=== PATIENT | male | born 1950 | race Caucasian/White ===

== ENCOUNTER 2017-05-18 07:55 | Inpatient (IN) | payer OTHER ==
[2017-05-18 08:42] LABS: Absolute Monocytes 0.8 K/uL (0.1-1.3); Absolute Neutrophil 11.8 K/uL (1.8-8.0); Basophils % 0.5 % (0-1.3); Eosinophils % 0.5 % (0-4.4); Hematocrit 42.3 % (39.6-49.0); Lymphocytes % 7.1 % (15.3-44.8); MCH 29.8 pg (27.0-35.0); MCV 89.4 fL (80-100); MPV 9.3 fL (7.6-11.3); Monocytes % 5.5 % (3.3-12.3); RBC Red Blood Cell Count 4.74 M/uL (4.33-5.43)
[2017-05-18] MEDS ORDERED: CEFEPIME/SWI 1gm 1 GM/10 ML SYR IV ONE (08:45)
[2017-05-18 08:47] LABS: Potassium 3.6 mEq/L (3.6-5.0)
[2017-05-18] MEDS ORDERED: VANCOMYCIN/NS 1 gm 1 GM/250 ML BAG ONE (08:48)
[2017-05-18] MEDS ORDERED: NA CHLORIDE 0.9% 2,000 ML ONE (08:48)
[2017-05-18 08:53] LABS: Albumin 3.6 g/dL (3.2-5.5); Bilirubin Direct 0.4 mg/dL (0-0.2); Bilirubin Total 1.6 mg/dL (0.3-1.2); Protein, Total 7.5 g/dL (6.0-8.3); Protime INR 1.98
[2017-05-18 09:08] LABS: Blood Morphology Comment NOT SEEN (NOT SEEN); Platelet Estimate DECR; Urine White Blood Cell Casts OK
[2017-05-18 09:43] LABS: Urine Bacteria <20 /HPF (NONE SEEN); Urine RBC <5 /HPF (NONE SEEN)
--- NOTE | 2017-05-18 09:43 | EDPHYS ---
Physician Documentation [facility] Name: Elijah Linares Age: 67 yrs Sex: Male : 1950 Arrival Date: 05/18/2017 Time: 07:57 Bed 5 Private MD: Isrrael Chun E ED Physician Noemi Felder HPI: 05/18 08:43 This 67 yrs old Male presents to ER via EMS with complaints of Leg Swelling - ma2 Redness. 08:43 The patient presents with pain, a rash, swelling. The complaints affect the medial ma2 aspect of left thigh, medial aspect of left knee, medial aspect of left calf, left medial ankle and medial aspect of left foot. Onset: The symptoms/episode began/occurred gradually, 2 day(s) ago. Associated signs and symptoms: Pertinent positives: fever, positional lightheadedness . Severity of symptoms: At their worst the symptoms were severe. The patient has experienced a previous episode. hx of DM has left lower extremity ulcers for 1 year, sent here by his home nurse for left LE swelling edema, fever and pain. Historical: - Allergies: 08:01 No Known Allergies; sv - PMHx: 08:01 Diabetes - NIDDM; Hypertension; diabetic ulcers; Cellulitis; sv - Immunization history:: Flu vaccine is up to date. - Social history:: Smoking status: Patient/guardian denies using tobacco, Patient uses alcohol, 2 x week. Patient/guardian denies using street drugs. ROS: 08:43 Eyes: Negative for injury, pain, redness, and discharge, ENT: Negative for injury, ma2 pain, and discharge, Neck: Negative for injury, pain, and swelling, Cardiovascular: Negative for chest pain, palpitations, and edema, Respiratory: Negative for shortness of breath, cough, wheezing, and pleuritic chest pain, Abdomen/GI: Negative for abdominal pain, nausea, diarrhea, and constipation, Back: Negative for injury and pain, : Negative for injury, bleeding, discharge, and swelling, Neuro: Negative for headache, weakness, numbness, tingling, and seizure, Psych: Negative for depression, anxiety, suicide ideation, homicidal ideation, and hallucinations, Allergy/Immunology: Negative for hives, rash, and allergies, Endocrine: Negative for neck swelling, polydipsia, polyuria, polyphagia, and marked weight changes. Exam: 08:43 Constitutional: This is a well developed, well nourished patient who is awake, alert, ma2 and in no acute distress. Head/Face: Normocephalic, atraumatic. Eyes: Pupils equal round and reactive to light, extra-ocular motions intact. Lids and lashes normal. Conjunctiva and sclera are non-icteric and not injected. Cornea within normal limits. Periorbital areas with no swelling, redness, or edema. Chest/axilla: Normal chest wall appearance and motion. Nontender with no deformity. No lesions are appreciated. Cardiovascular: Regular rate and rhythm with a normal S1 and S2. No gallops, murmurs, or rubs. Normal PMI, no JVD. No pulse deficits. Respiratory: Lungs have equal breath sounds bilaterally, clear to auscultation and percussion. No rales, rhonchi or wheezes noted. No increased work of breathing, no retractions or nasal flaring. 08:43 Skin: left leg mild edema erythema warmth over whole left foot leg knee and left thigh, tender to palpation, no crepitus, no fluctuance. has 2 partially healed ulcers on left foot medial aspect, dry . Vital Signs: 08:01 BP 118 / 58; Pulse 63; Resp 20; Temp 98.1(O); Pulse Ox 100% on R/A; Weight 124.74 kg sv (R); Height 5 ft. 11 in. (180.34 cm) (R); Pain 6/10; 09:04 BP 126 / 62; Pulse 67; Resp 18; Pulse Ox 99% on R/A; sv 10:00 BP 117 / 96; Pulse 70; Resp 17; Pulse Ox 100% ; sv 10:57 BP 116 / 54; Pulse 60; Resp 18; Pulse Ox 97% on R/A; sv 08:01 Body Mass Index 38.35 (124.74 kg, 180.34 cm) sv MDM: 07:57 Patient medically screened. ma2 08:43 Differential diagnosis: contusion, abrasion, left leg cellulitis. ma2 09:09 Data reviewed: vital signs, nurses notes, EMS record, old medical records, lab test ma2 result(s), EKG, started on vanc cefepime, 2L bolus, will admit for cellulitis of whole LLE, elevated WBC, DEMARCUS cr = 2.2 from 1.3, and as a result, I will. Sepsis 6 hour Focused Exam: Focused assessment performed: May 18, 2017 at 09:11 Heart: Regular rate/rhythm. Lungs: noted to be clear bilaterally. Capillary refill examination performed. Capillary refill noted to be < 2 seconds. Skin examination performed. Skin examination noted to be unremarkable. Passive leg raise examination performed. Other: skin cellulitis unchanged . Counseling: I had a detailed discussion with the patient and/or guardian regarding: the historical points, exam findings, and any diagnostic results supporting the discharge/admit diagnosis, the presence of at least one elevated blood pressure reading (>120/80) during this emergency department visit, the need for further work-up and treatment in the hospital. Physician consultation: Freedom Macias MD. Admission orders: after a detailed discussion of the patient's condition and case, the admit orders are written by ia. 09:19 Counseling: I had a detailed discussion with the patient and/or guardian regarding: the ia2 need for further work-up and treatment in the hospital. Physician consultation:. Admission orders: after a detailed discussion of the patient's condition and case, the admit orders are written by me. 05/18 08:09 Order name: Basic Metabolic Panel [facility] 05/18 08:09 Order name: Blood Culture Adult (2) [facility] 05/18 08:09 Order name: CBC with Diff [facility] 05/18 08:09 Order name: Lactate [facility] 05/18 08:09 Order name: Procalcitonin [facility] 05/18 08:09 Order name: Protime (+inr) [facility] 05/18 08:09 Order name: Ptt, Activated [facility] 05/18 08:09 Order name: Sed Rate [facility] 05/18 08:09 Order name: LFT's [facility] 05/18 08:47 Order name: Basic Metabolic Panel; Complete Time: 09:02 EDMS 05/18 09:26 Interpretation: Abnormal. [facility] 05/18 08:54 Order name: Liver (Hepatic) Function; Complete Time: 09:02 EDMS 05/18 08:57 Order name: Protime (+INR); Complete Time: 09:02 EDMS 05/18 08:58 Order name: PTT, Activated Partial Thromb; Complete Time: 09:02 EDMS 05/18 08:59 Order name: Lactate; Complete Time: 09:02 EDMS 05/18 08:09 Order name: Cardiac monitoring; Complete Time: 08:19 ma2 05/18 08:09 Order name: IV Saline Lock - Large Bore; Complete Time: 08:47 ma2 05/18 08:09 Order name: Labs collected and sent; Complete Time: 08:47 ma2 05/18 09:03 Order name: Urine Microscopic Only jb1 05/18 09:06 Order name: Urine Dipstick--Ancillary (enter results) bd 05/18 09:06 Order name: Sedimentation Rate, Westergren; Complete Time: 09:09 EDMS 05/18 09:08 Order name: Procalcitonin; Complete Time: 09:09 EDMS 05/18 09:09 Order name: CBC with Automated Diff; Complete Time: 09:09 EDMS 05/18 09:09 Order name: CBC Smear Scan; Complete Time: 09:09 EDMS 05/18 09:44 Order name: Urine Microscopic Only EDMS 05/18 10:57 Order name: Urine Dipstick-Ancillary EDMS 05/18 08:09 Order name: O2 Per Protocol; Complete Time: 08:19 ma2 05/18 08:09 Order name: O2 Sat Monitoring; Complete Time: 08:19 ma2 05/18 08:09 Order name: Urine Dipstick-Ancillary (obtain specimen); Complete Time: 09:03 ma2 Administered Medications: 08:46 CANCELLED (order changed): NS 0.9% (30 ml/kg) 30 ml/kg IV at bolus once; Sepsis Protocolsv 08:47 Drug: vancoMYCIN 1 grams Route: IVPB; Infused Over: 2 hrs; Site: right forearm; sv 10:14 Follow up: IV Status: Completed infusion ss 08:47 Drug: NS 0.9% 2000 ml Route: IV; Rate: 1000 ml; Site: right forearm; sv 11:25 Follow up: Response: No adverse reaction; IV Status: Completed infusion; IV Intake: sv 2000ml 09:12 Drug: Cefepime 1 grams {Note: vanc paused and line flushed prior to administratoin. ss Cefepime 1 G given SIVP over 4 minutes as instructed by pharmacy. .} Route: IVPB; Rate: 200 ml/hr; Infused Over: 30 mins; Site: right forearm; Disposition: 05/18/17 09:43 Hospitalization ordered by Ira Welch for Observation. Preliminary diagnosis are Cellulitis of left lower limb, Hypo-osmolality and hyponatremia, Acute kidney failure, unspecified. - Bed requested for Telemetry/MedSurg (observation). - Status is Observation. sv - Condition is Stable. - Problem is new. - Symptoms are unchanged. UTI on Admission? No Signatures: Dispatcher [employer] EDMS Ifrah Hicks Stephanie, RN RN Michelle Flanagan RN RN Noemi Felder MD MD [facility] Corrections: (The following items were deleted from the chart) 08:46 08:09 NS 0.9% (30 ml/kg) 30 ml/kg IV at bolus once; Sepsis Protocol ordered. [facility] 09:23 08:09 Accucheck ordered. ia2 09: 09:26 Abnormal. ia2 [facility] : 09:26 Within normal limits. ia2 [facility]
--- NOTE | 2017-05-18 09:43 | ER ---
Nurse's Notes [facility] Name: Elijah Linares Age: 67 yrs Sex: Male : 1950 Arrival Date: 05/18/2017 Time: 07:57 Bed 5 Private MD: Isrrael Chun E Diagnosis: Cellulitis of left lower limb;Hypo-osmolality and hyponatremia;Acute kidney failure, unspecified Presentation: 05/18 07:47 Presenting complaint: EMS states: seen yesterday by his HH nurse and noted redness to sv the left foot up to the left knee and pain. Pt stated yesterday he stood up and felt cold. BP 139/72 HR 54 RR 16 98% RA T-98.8. Transition of care: patient was not received from another setting of care. Onset of symptoms was May 17, 2017. Care prior to arrival: Glucose check: 115. 07:47 Method Of Arrival: EMS: [facility] sv 07:47 Acuity: NADIYA 3 sv Triage Assessment: 07:55 General: Appears in no apparent distress. uncomfortable, obese, well developed, sv Behavior is calm, cooperative, appropriate for age. Pain: Complains of pain in left leg Pain does not radiate. Pain currently is 6 out of 10 on a pain scale. Quality of pain is described as tender, Pain began 1 day ago. Is continuous, Aggravated by increased activity, weight bearing. EENT: No signs and/or symptoms were reported regarding the EENT system. Neuro: Level of Consciousness is awake, alert, obeys commands, Oriented to person, place, time, situation, Moves all extremities. Full function Speech is normal. Cardiovascular: Patient's skin is warm and dry. Respiratory: Airway is patent Respiratory effort is even, unlabored, Respiratory pattern is regular, symmetrical. Derm: Skin is normal, Wound noted lateral aspect of left calf, left lateral ankle, lateral aspect of left foot, left calf, left Achilles, left heel, medial aspect of left calf, left medial ankle, medial aspect of left foot, left mehta, anterior aspect of left ankle and dorsum of left foot Wound is Pt has scaly skin and discoloration noted. Pt has a diabetic ulcers that he has been dealing with for about 5 years and has a home health nurse that comes and dresses it. Pt has 2 separate ones noted on the proximal part of the left ankle. Historical: - Allergies: 08:01 No Known Allergies; sv - PMHx: 08:01 Diabetes - NIDDM; Hypertension; diabetic ulcers; Cellulitis; sv - Immunization history:: Flu vaccine is up to date. - Social history:: Smoking status: Patient/guardian denies using tobacco, Patient uses alcohol, 2 x week. Patient/guardian denies using street drugs. Screenin:24 Abuse screen: Denies threats or abuse. Denies injuries from another. Nutritional sv screening: No deficits noted. Tuberculosis screening: No symptoms or risk factors identified. Fall Risk No fall in past 12 months (0 pts). No secondary diagnosis (0 pts). IV access (20 points). Ambulatory Aid- None/Bed Rest/Nurse Assist (0 pts). Gait- Normal/Bed Rest/Wheelchair (0 pts) Mental Status- Oriented to own ability (0 pts). Total Penn Fall Scale indicates No Risk (0-24 pts). Assessment: 08:00 Reassessment: See triage assessment. sv 09:08 Reassessment: Patient appears in no apparent distress at this time. No changes from sv previously documented assessment. Patient and/or family updated on plan of care and expected duration. Pain level reassessed. Patient is alert, oriented x 3, equal unlabored respirations, skin warm/dry/pink. 10:14 Reassessment: Patient appears in no apparent distress at this time. No changes from sv previously documented assessment. Patient and/or family updated on plan of care and expected duration. Pain level reassessed. Patient is alert, oriented x 3, equal unlabored respirations, skin warm/dry/pink. 11:02 Reassessment: Nurse to call back for report. sv 11:26 Reassessment: Patient appears in no apparent distress at this time. No changes from sv previously documented assessment. Patient and/or family updated on plan of care and expected duration. Pain level reassessed. Patient is alert, oriented x 3, equal unlabored respirations, skin warm/dry/pink. Vital Signs: 08:01 BP 118 / 58; Pulse 63; Resp 20; Temp 98.1(O); Pulse Ox 100% on R/A; Weight 124.74 kg sv (R); Height 5 ft. 11 in. (180.34 cm) (R); Pain 6/10; 09:04 BP 126 / 62; Pulse 67; Resp 18; Pulse Ox 99% on R/A; sv 10:00 BP 117 / 96; Pulse 70; Resp 17; Pulse Ox 100% ; sv 10:57 BP 116 / 54; Pulse 60; Resp 18; Pulse Ox 97% on R/A; sv 08:01 Body Mass Index 38.35 (124.74 kg, 180.34 cm) sv ED Course: 07:57 Patient arrived in ED. sv 07:57 Noemi Felder MD is Attending Physician. ma2 07:58 Silvana Avila RN is Primary Nurse. sv 08:00 Triage completed. sv 08:02 Arm band placed on right wrist. sv 08:02 Patient has correct armband on for positive identification. Placed in gown. Bed in low sv position. Call light in reach. Side rails up X2. electronic device monitor on. Pulse ox on. NIBP on. Door closed. Head of bed elevated. 08:58 LFT's Sent. sv 08:58 Basic Metabolic Panel Sent. sv 08:58 Blood Culture Adult (2) Sent. sv 08:58 CBC with Diff Sent. sv 08:58 Lactate Sent. sv 08:58 Procalcitonin Sent. sv 08:58 Protime (+inr) Sent. sv 08:58 Ptt, Activated Sent. sv 08:58 Sed Rate Sent. sv 09:02 Urine collected: clean catch specimen, cloudy, garrison colored. jb1 09:23 Urine Dipstick--Ancillary (enter results) Sent. sv 09:23 Urine Microscopic Only Sent. sv 09:24 Awaiting disposition. sv 09:40 Ira Welch MD is Hospitalizing Provider. ma2 09:44 Awaiting bed assignment. sv 10:14 Isrrael Chun MD is Private Physician. sv 11:26 No provider procedures requiring assistance completed. Patient admitted, IV remains in sv place. intact. Administered Medications: 08:46 CANCELLED (order changed): NS 0.9% (30 ml/kg) 30 ml/kg IV at bolus once; Sepsis Protocolsv 08:47 Drug: vancoMYCIN 1 grams Route: IVPB; Infused Over: 2 hrs; Site: right forearm; sv 10:14 Follow up: IV Status: Completed infusion ss 08:47 Drug: NS 0.9% 2000 ml Route: IV; Rate: 1000 ml; Site: right forearm; sv 11:25 Follow up: Response: No adverse reaction; IV Status: Completed infusion; IV Intake: sv 2000ml 09:12 Drug: Cefepime 1 grams {Note: vanc paused and line flushed prior to administratoin. ss Cefepime 1 G given SIVP over 4 minutes as instructed by pharmacy. .} Route: IVPB; Rate: 200 ml/hr; Infused Over: 30 mins; Site: right forearm; Intake: 11:25 IV: 2000ml; Total: 2000ml. sv Outcome: 09:43 Decision to Hospitalize by Provider. sarath 11:26 Admitted to Med/surg accompanied by tech, via stretcher, room 212, with chart, Report sv called to Noah RICKETTS 11:26 Condition: stable 11:26 Instructed on the need for admit. 11:52 Patient left the ED. sv Signatures: Elijah Ferguson Stephanie, JAMARCUS RN Michelle Link RN RN Noemi Felder MD MD [facility]
[2017-05-18 09:44] LABS: Urine Culture Reflex Order NOT NEEDED
[2017-05-18 10:57] LABS: Urine Blood 2+ (NEG); Urine Glucose NEGATIVE (NEG); Urine Protein 1+ (NEG)
[2017-05-18] MEDS ORDERED: ACETAMINOPHEN 500 MG TAB PO PRN (11:29)
[2017-05-18] MEDS ORDERED: ONDANSETRON 4 MG (ODT) TAB PO PRN (11:29)
[2017-05-18] MEDS: NA CHLORIDE 0.9% 1,000 ML IV SCH (11:29)
[2017-05-18] MEDS ORDERED: VANCOMYCIN 1.25 GM in NA CHLORIDE 0.9% 250 ML IVPB SCH (13:00)
--- NOTE | 2017-05-18 15:09 | P.HP ---
Certification for Inpatient Patient admitted to: Inpatient With expected LOS: >2 Midnights Patient will require the following post-hospital care: None Practitioner: I am a practitioner with admitting privileges, knowledge of patient current condition, hospital course, and medical plan of care. Services: Services provided to patient in accordance with Admission requirements found in Title 42 Section 412.3 of the Code of Federal Regulations Patient History Date of Service: 05/18/17 Reason for admission: Cellulitis History of Present Illness: This is a 67-year-old male with significant past medical history of congestive heart failure, atrial fibrillation, chronic anti coagulation therapy, chronic PAD with ulceration who presented to the ED complaining of left leg cellulitis that has gotten worse. Patient has been admitted to the hospital frequently for the same problems and then discharged home on antibiotics along with wound care. Patient has home health nurses and visits wound healing Center for his left leg ulcerations from chronic PVD. Patient stated that for couple of days he has noticed that his leg has been getting worse with erythema and purulent discharge as he decided to come to the ER to get it checked out. Patient states that his home health nurse was also concerned regarding the collar of the leg and how it was extending to the thigh area. Allergies No Known Allergies Allergy (Verified 10/26/15 18:40) Home Medications: Carvedilol 3.125 mg PO BID #60 tablet 08/27/15 Furosemide [Lasix*] 40 mg PO BID #60 tab 08/27/15 Lisinopril [Prinivil*] 5 mg PO DAILY #30 tab 08/27/15 Rivaroxaban [Xarelto] 20 mg PO DAILY AT SUPPER #30 tablet 08/27/15 - Past Medical/Surgical History Has patient received pneumonia vaccine in the past: Yes Diabetic: Yes -: DM (diet controlled) -: HTN -: Blood clot superior vena cava -: chonic left lower ext. diabetic wounds - Family History Father -: Stroke Mother -: Other (see notes) Notes: blood clots - Social History Smoking Status: Never smoker Alcohol use: Yes CD- Drugs: No Caffeine use: Yes Place of Residence: Home Review of Systems General: As per HPI Physical Examination - Vital Signs Temperature: 97.0 F Blood Pressure: 133/90 Pulse: 62 Respirations: 20 Pulse Ox (%): 100 - Physical Exam General: Alert, In no apparent distress, Oriented x3 HEENT: Atraumatic Neck: Supple Respiratory: Clear to auscultation bilaterally, Normal air movement Cardiovascular: Regular rate/rhythm, Normal S1 S2 Gastrointestinal: Normal bowel sounds, Soft and benign, Non-distended, No tenderness Musculoskeletal: Other (BL LE with Bluish Hue, Left LE with Erythema and Tenderness and purulent Discharge. ) Integumentary: Rash(es), Skin lesion Neurological: Normal speech, Normal tone, Normal affect Lymphatics: No axilla or inguinal lymphadenopathy - Studies Laboratory Data (last 24 hrs) 05/18/17 08:10: PT 23.5 H, INR 1.98, APTT 36.9 05/18/17 08:10: WBC 13.7 H, Hgb 14.1, Hct 42.3, Plt Count 145 L 05/18/17 08:10: Sodium 127 L, Potassium 3.6, BUN 41 H, Creatinine 2.22 H, Glucose 120, Total Bilirubin 1.6 H, AST 29, ALT 17, Alkaline Phosphatase 57 Assessment and Plan - Problems (Diagnosis) (1) Cellulitis of leg, left Onset Date: 10/27/15 Current Visit: No Status: Acute Plan: Acute Left Sided Cellulitis -IV vanc and zosyn -Wound care consult -Wound culture -MRI to r/o Osteomylitis (2) Chronic venous hypertension w ulceration Current Visit: No Status: Chronic Qualifiers: Laterality: bilateral Qualified Code(s): I87.313 - Chronic venous hypertension (idiopathic) with ulcer of bilateral lower extremity (3) CHF (congestive heart failure) Onset Date: 08/25/15 Current Visit: No Status: Chronic Qualifiers: Heart failure type: systolic Heart failure chronicity: chronic Qualified Code(s): I50.22 - Chronic systolic (congestive) heart failure (4) Hyperlipidemia Onset Date: 10/27/15 Current Visit: No Status: Chronic Qualifiers: Hyperlipidemia type: mixed hyperlipidemia Qualified Code(s): E78.2 - Mixed hyperlipidemia (5) Hypertension Onset Date: 10/27/15 Current Visit: No Status: Chronic Qualifiers: Hypertension type: essential hypertension Qualified Code(s): I10 - Essential (primary) hypertension (6) Diabetes mellitus Onset Date: 08/25/15 Current Visit: No Status: Chronic (7) Obesity Current Visit: No Status: Chronic (8) Chronic anticoagulation Onset Date: 10/27/15 Current Visit: No Status: Chronic Plan: Chronic Anticoagulation due to blood Clot in SVC Discharge Plan: LTAC Plan to discharge in: 72 Hours - Advance Directives Does patient have a Living Will: No Does patient have a Durable POA for Healthcare: No
[2017-05-18] MEDS: VANCOMYCIN 2 GM in NA CHLORIDE 0.9% 500 ML IVPB SCH (15:21)
[2017-05-18] MEDS: PIPER/TAZO/NS 3.375gm 3.375 GM/100 ML BAG IVPB SCH (17:00)
[2017-05-18] MEDS: RIVAROXABAN 20 MG TABLET PO SCH (17:06)
--- NOTE | 2017-05-18 17:23 | RAD REPORT ---
EXAM DESCRIPTION: MRI - Tib Fib Left Wo Cont - 05/18/2017 5:06 pm CLINICAL HISTORY: Left lower leg pain, swelling and open wound COMPARISON: None. TECHNIQUE: Axial, sagittal coronal magnetic resonance imaging of the distal aspect of the left lowe r extremity was performed. FINDINGS: A soft tissue ulceration involves the medial aspect of the ankle. Diffuse edema is present within the subcutaneous tissues. The tibia, talus and calcaneus demonstrates normal. A soft tissue abscess is not seen. Small ankle joint effusion is present. A moderate talocalcaneal joint effusion is seen. IMPRESSION: Soft tissue ulceration involving the medial aspect of the ankle. No evidence of osteomyelitis.
[2017-05-18] MEDS: FUROSEMIDE 40 MG TABLET PO SCH (21:17)
[2017-05-18] MEDS: CARVEDILOL 3.125 MG TAB PO SCH (21:18)
[2017-05-19] MEDS: PIPER/TAZO/NS 3.375gm 3.375 GM/100 ML BAG IVPB SCH ×3 (01:54→17:16)
[2017-05-19] MEDS: NA CHLORIDE 0.9% 1,000 ML IV SCH ×3 (01:55→17:16)
[2017-05-19 05:48] LABS: Absolute Lymphocytes (CBC) 1.1 K/uL (0.7-4.9); Absolute Monocytes 0.7 K/uL (0.1-1.3); Absolute Neutrophil 7.9 K/uL (1.8-8.0); Basophils % 0.4 % (0-1.3); Eosinophils % 2.2 % (0-4.4); Hematocrit 38.6 % (39.6-49.0); Lymphocytes % 10.8 % (15.3-44.8); MCH 29.9 pg (27.0-35.0); MCV 90.2 fL (80-100); MPV 9.6 fL (7.6-11.3); Monocytes % 6.7 % (3.3-12.3); RBC Red Blood Cell Count 4.28 M/uL (4.33-5.43)
[2017-05-19 06:00] LABS: Albumin 2.9 g/dL (3.2-5.5); Potassium 3.8 mEq/L (3.6-5.0); Protein, Total 6.4 g/dL (6.0-8.3)
[2017-05-19 06:01] LABS: Phosphorus 2.8 mg/dL (2.5-4.3)
[2017-05-19] MEDS: LISINOPRIL 5 MG TAB PO SCH ×2 (09:00→12:03)
[2017-05-19] MEDS: CARVEDILOL 3.125 MG TAB PO SCH ×3 (09:00→21:24)
[2017-05-19] MEDS: FUROSEMIDE 40 MG TABLET PO SCH ×2 (10:09→21:23)
[2017-05-19] MEDS ORDERED: MAGNESIUM HYDROXIDE 8% 30 ML PO ONE (10:30)
[2017-05-19] MEDS: DOCUSATE NA 100 MG CAP PO SCH ×2 (11:02→21:00)
--- NOTE | 2017-05-19 14:26 | P.PN ---
Subjective Date of Service: 05/19/17 Chief Complaint: Cellulitis Mitchell seen and examined at bedside with RN. Case chart reviewed. Patient currently doing better than before she. States that his swelling has gone down markedly and history Ra has decreased markedly as well. Review of Systems General: As per HPI Physical Examination - Vital Signs Temperature: 98.0 F Blood Pressure: 143/72 Pulse: 71 Respirations: 18 Pulse Ox (%): 99 - Physical Exam General: Alert, In no apparent distress HEENT: Atraumatic, PERRLA, EOMI Neck: Supple, JVD not distended Respiratory: Clear to auscultation bilaterally, Normal air movement Cardiovascular: Regular rate/rhythm, Normal S1 S2 Gastrointestinal: Normal bowel sounds, No tenderness Musculoskeletal: Other (Left Lower leg with swelling and erythema. Decreased swelling and redness than yesterday. ) Neurological: Normal speech, Normal tone, Normal affect Lymphatics: No axilla or inguinal lymphadenopathy - Studies Microbiology Data (last 24 hrs): 05/18/17 08:10 Blood - Other Anaerobic Blood Culture - Final Medications List Reviewed: Yes Assessment & Plan - Problems (Diagnosis) (1) Cellulitis of leg, left Onset Date: 10/27/15 Current Visit: No Status: Acute Plan: Acute Left Sided Cellulitis -IV vanc and zosyn -Wound care consult -Wound culture -MRI Negative for osteomylitis . (2) Chronic venous hypertension w ulceration Current Visit: No Status: Chronic Qualifiers: Laterality: bilateral Qualified Code(s): I87.313 - Chronic venous hypertension (idiopathic) with ulcer of bilateral lower extremity (3) CHF (congestive heart failure) Onset Date: 08/25/15 Current Visit: No Status: Chronic Qualifiers: Heart failure type: systolic Heart failure chronicity: chronic Qualified Code(s): I50.22 - Chronic systolic (congestive) heart failure (4) Hyperlipidemia Onset Date: 10/27/15 Current Visit: No Status: Chronic Qualifiers: Hyperlipidemia type: mixed hyperlipidemia Qualified Code(s): E78.2 - Mixed hyperlipidemia (5) Hypertension Onset Date: 10/27/15 Current Visit: No Status: Chronic Qualifiers: Hypertension type: essential hypertension Qualified Code(s): I10 - Essential (primary) hypertension (6) Diabetes mellitus Onset Date: 08/25/15 Current Visit: No Status: Chronic (7) Obesity Current Visit: No Status: Chronic (8) Chronic anticoagulation Onset Date: 10/27/15 Current Visit: No Status: Chronic Plan: Chronic Anticoagulation due to blood Clot in SVC Discharge Plan: Home Plan to discharge in: 24 Hours - Code Status/Comfort Care Code Status Assessed: Yes Critical Care: No
[2017-05-19] MEDS: RIVAROXABAN 20 MG TABLET PO SCH (17:16)
[2017-05-20] MEDS: PIPER/TAZO/NS 3.375gm 3.375 GM/100 ML BAG IVPB SCH ×3 (01:50→18:27)
[2017-05-20] MEDS: NA CHLORIDE 0.9% 1,000 ML IV SCH ×3 (01:51→20:48)
[2017-05-20] MEDS: VANCOMYCIN 2 GM in NA CHLORIDE 0.9% 500 ML IVPB SCH (04:21)
[2017-05-20 05:02] LABS: Absolute Monocytes 0.9 K/uL (0.1-1.3); Absolute Neutrophil 7.4 K/uL (1.8-8.0); Basophils % 0.9 % (0-1.3); Eosinophils % 2.1 % (0-4.4); Hematocrit 37.4 % (39.6-49.0); MCV 89.1 fL (80-100); MPV 9.6 fL (7.6-11.3); Monocytes % 9.8 % (3.3-12.3)
[2017-05-20 05:15] LABS: Albumin 2.7 g/dL (3.2-5.5); Potassium 3.9 mEq/L (3.6-5.0)
[2017-05-20 05:24] LABS: Bilirubin Total 1.8 mg/dL (0.3-1.2); Magnesium 1.9 mg/dL (1.8-2.5); Phosphorus 2.3 mg/dL (2.5-4.3)
[2017-05-20] MEDS: DOCUSATE NA 100 MG CAP PO SCH ×2 (10:37→20:49)
[2017-05-20] MEDS: LISINOPRIL 5 MG TAB PO SCH (10:37)
[2017-05-20] MEDS: CARVEDILOL 3.125 MG TAB PO SCH ×2 (10:37→20:49)
[2017-05-20] MEDS: FUROSEMIDE 40 MG TABLET PO SCH ×2 (10:38→20:49)
--- NOTE | 2017-05-20 13:13 | P.PN ---
Subjective Date of Service: 05/20/17 Chief Complaint: Cellulitis Mitchell seen and examined at bedside with RN. Case chart reviewed. Patient currently doing better than before she. States that his redness has improved, however today swelling is worse. Review of Systems 10-point ROS is otherwise unremarkable Physical Examination - Vital Signs Temperature: 99.3 F Blood Pressure: 124/60 Pulse: 59 Respirations: 16 Pulse Ox (%): 95 - Physical Exam General: Alert, In no apparent distress HEENT: Atraumatic, PERRLA, EOMI Neck: Supple, JVD not distended Respiratory: Clear to auscultation bilaterally, Normal air movement Cardiovascular: Regular rate/rhythm, Normal S1 S2 Gastrointestinal: Normal bowel sounds, No tenderness Musculoskeletal: Erythema, Tenderness, Warmth Integumentary: No rashes Neurological: Normal speech, Normal tone, Normal affect Lymphatics: No axilla or inguinal lymphadenopathy - Studies Microbiology Data (last 24 hrs): 05/18/17 08:10 Blood - Other Anaerobic Blood Culture - Final Medications List Reviewed: Yes Assessment & Plan - Problems (Diagnosis) (1) Cellulitis of leg, left Onset Date: 10/27/15 Current Visit: No Status: Acute Plan: Acute Left Sided Cellulitis. Improved but with Swelling -IV vanc and zosyn -Wound care consult -Wound culture pending -MRI Negative for osteomylitis. -Elevate and wrap the legs. (2) Chronic venous hypertension w ulceration Current Visit: No Status: Chronic Qualifiers: Laterality: bilateral Qualified Code(s): I87.313 - Chronic venous hypertension (idiopathic) with ulcer of bilateral lower extremity (3) CHF (congestive heart failure) Onset Date: 08/25/15 Current Visit: No Status: Chronic Qualifiers: Heart failure type: systolic Heart failure chronicity: chronic Qualified Code(s): I50.22 - Chronic systolic (congestive) heart failure (4) Hyperlipidemia Onset Date: 10/27/15 Current Visit: No Status: Chronic Qualifiers: Hyperlipidemia type: mixed hyperlipidemia Qualified Code(s): E78.2 - Mixed hyperlipidemia (5) Hypertension Onset Date: 10/27/15 Current Visit: No Status: Chronic Qualifiers: Hypertension type: essential hypertension Qualified Code(s): I10 - Essential (primary) hypertension (6) Diabetes mellitus Onset Date: 08/25/15 Current Visit: No Status: Chronic (7) Obesity Current Visit: No Status: Chronic (8) Chronic anticoagulation Onset Date: 10/27/15 Current Visit: No Status: Chronic Plan: Chronic Anticoagulation due to blood Clot in SVC Discharge Plan: Home Plan to discharge in: 24 Hours - Code Status/Comfort Care Code Status Assessed: Yes Critical Care: No
[2017-05-20] MEDS: RIVAROXABAN 20 MG TABLET PO SCH (18:27)
[2017-05-21] MEDS: PIPER/TAZO/NS 3.375gm 3.375 GM/100 ML BAG IVPB SCH ×2 (00:45→09:46)
[2017-05-21 05:08] LABS: Absolute Lymphocytes (CBC) 1.4 K/uL (0.7-4.9); Absolute Monocytes 1.5 K/uL (0.1-1.3); Basophils % 0.5 % (0-1.3); Eosinophils % 2.3 % (0-4.4); Hematocrit 35.5 % (39.6-49.0); Lymphocytes % 12.5 % (15.3-44.8); MCH 29.9 pg (27.0-35.0); MCV 89.3 fL (80-100); MPV 9.4 fL (7.6-11.3); Monocytes % 13.4 % (3.3-12.3); RBC Red Blood Cell Count 3.98 M/uL (4.33-5.43)
[2017-05-21] MEDS: VANCOMYCIN 2 GM in NA CHLORIDE 0.9% 500 ML IVPB SCH (05:34)
[2017-05-21 06:06] LABS: Albumin 2.6 g/dL (3.2-5.5); Bilirubin Total 1.7 mg/dL (0.3-1.2); Magnesium 1.9 mg/dL (1.8-2.5); Phosphorus 2.2 mg/dL (2.5-4.3); Potassium 4.1 mEq/L (3.6-5.0); Protein, Total 6.2 g/dL (6.0-8.3)
[2017-05-21] MEDS: DOCUSATE NA 100 MG CAP PO SCH ×2 (09:36→20:14)
[2017-05-21] MEDS: CARVEDILOL 3.125 MG TAB PO SCH ×2 (09:36→20:15)
[2017-05-21] MEDS: NA CHLORIDE 0.9% 1,000 ML IV SCH ×2 (09:37→19:29)
[2017-05-21] MEDS: FUROSEMIDE 40 MG TABLET PO SCH ×2 (09:37→20:16)
[2017-05-21] MEDS: LISINOPRIL 5 MG TAB PO SCH (09:37)
[2017-05-21] MEDS ORDERED: CHLORHEXIDINE GLUCO 4% 120 ML TOP SCH (12:00)
--- NOTE | 2017-05-21 13:29 | CON ---
Date of Consultation: 05/21/2017 Reason: Cellulitis and wound, left leg. History Of Present Illness: The patient is a 67-year-old gentleman, well known to me from wound care . He has venous stasis ulcer on the left leg, which we have been managing as an outpatient in the [facility] and he noticed that he got redness all the way up to his thighs last week, which o ccurred over 2 days. He was admitted on Sunday and then I was asked to evaluate him today. He does have MRSA growing from the wound. He had a MRI of the tib-fib area, which did not show any drainable fluid or abscess. He does not have any fever or chills currently, but he did when he became ill lat e last week. No sore throat, runny nose, cough, headaches, or dizziness. No chest pain. Review of Systems: Otherwise unremarkable. 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 He has collaterals through the epigastric vessels and lumbar vessels. Allergies: NONE. Social History: He does not smoke. Drinks occasionally. Family History: Noncontributory. Physical Examination: Vital Signs: Stable. He is afebrile, awake, alert, orient x3. Head and Neck: Cranial nerves 2 through 12 grossly within limits. No neck masses. No JVD. Throat clear. Neck supple. Chest: Clear. Heart: S1, S2. Abdomen: Soft. Extremities: There are 2 ulcerations on the left medial leg above the ankle. They are approximately 4 x 2 cm and 3 x 1 cm. There have moderate amount of fibrin in them. The erythema, warmth, and elzbieta ma where the line was drawn in the mid thigh is markedly improved. There is still some redness in th e left lower leg. There is some tenseness to it, but it is nothing new for him. There is no purulen t discharge at this time. Laboratory Data: White count today is 11.2 with a neutrophil percentage of 71.3. Sedimentation rate is 55. INR is 1.98. Chemistry reviewed, his BUN and creatinine are 25 and 1.71 and the intensive M RI and does not show any drainable abscess. Assessment: Left leg cellulitis with wound. Recommendation: Continue vancomycin and wound care will be consisting of collagenase as well as Lide x p.r.n. I can follow the patient either at the [facility] or at the [facility] should he decide to go there. No need for any acute surgical intervention at this time. JEYSON/LISA Voice ID: [id number] Report ID: [id number]
[2017-05-21] MEDS: CEFEPIME/SWI 2gm 2 GM/20 ML SYR IV SCH (13:47)
--- NOTE | 2017-05-21 16:56 | P.DS ---
Admission Date: 05/18/17 Discharge Date: 05/21/17 Disposition: ROUTINE DISCHARGE Discharge Condition: GOOD Reason for Admission: Cellulitis Consultations: Gen Surgery - Problems (1) Cellulitis of leg, left Onset Date: 10/27/15 Current Visit: No Status: Acute (2) Chronic venous hypertension w ulceration Onset Date: 05/21/17 Current Visit: Yes Status: Chronic Qualifiers: Laterality: bilateral Qualified Code(s): I87.313 - Chronic venous hypertension (idiopathic) with ulcer of bilateral lower extremity (3) CHF (congestive heart failure) Onset Date: 08/25/15 Current Visit: No Status: Chronic Qualifiers: Heart failure type: systolic Heart failure chronicity: chronic Qualified Code(s): I50.22 - Chronic systolic (congestive) heart failure (4) Hyperlipidemia Onset Date: 10/27/15 Current Visit: No Status: Chronic Qualifiers: Hyperlipidemia type: mixed hyperlipidemia Qualified Code(s): E78.2 - Mixed hyperlipidemia (5) Hypertension Onset Date: 10/27/15 Current Visit: No Status: Chronic Qualifiers: Hypertension type: essential hypertension Qualified Code(s): I10 - Essential (primary) hypertension (6) Diabetes mellitus Onset Date: 08/25/15 Current Visit: No Status: Chronic (7) Obesity Onset Date: 05/21/17 Current Visit: Yes Status: Chronic (8) Chronic anticoagulation Onset Date: 10/27/15 Current Visit: No Status: Chronic Brief History of Present Illness: This is a 67-year-old male with significant past medical history of congestive heart failure, atrial fibrillation, chronic anti coagulation therapy, chronic PAD with ulceration who presented to the ED complaining of left leg cellulitis that has gotten worse. Patient has been admitted to the hospital frequently for the same problems and then discharged home on antibiotics along with wound care. Patient has home health nurses and visits wound healing Center for his left leg ulcerations from chronic PVD. Patient stated that for couple of days he has noticed that his leg has been getting worse with erythema and purulent discharge as he decided to come to the ER to get it checked out. Patient states that his home health nurse was also concerned regarding the collar of the leg and how it was extending to the thigh area. Hospital Course: A 67-year-old male patient, who was admitted to the hospital after he presented to the emergency room with chronic left leg wound, but now new area of cellulitis of the left leg. The patient [facility] to [facility] on a regular basis and sees Dr. Mojica and he was asked to come in to the emergency room with complaints of redness of the left leg. After patient was evaluated in the ER, he was admitted to the hospital. He has chronic left leg wound which he said was worsening and was rather a large area of wound now. There was purulent discharge from this wound. The patient had redness and warmness of the left leg between knee and ankle. He was started on empiric IV antibiotics. There was improvement in the Cellulitis but the swelling was still there. Wound culture were positive for MRSA. I did talk to Dr. Mojica, he suggested to continue wound care dressing changes as per instructions from [facility] and for the patient to be moved to LTAC at [place] for 2 weeks of IV vanc for his infection. Pt was thus discharged to [facility] after PICC line insertion and had a f/u appt with dr mojica there. Vital Signs/Physical Exam: Temp Pulse Resp BP Pulse Ox 98.2 F 59 16 108/57 L 99 05/21/17 12:00 05/21/17 12:00 05/21/17 12:00 05/21/17 12:00 05/21/17 12:00 General: Alert, In no apparent distress, Oriented x3 HEENT: Atraumatic, PERRLA, EOMI Neck: Supple, JVD not distended Respiratory: Clear to auscultation bilaterally, Normal air movement Cardiovascular: Regular rate/rhythm, Normal S1 S2 Gastrointestinal: Normal bowel sounds, No tenderness Musculoskeletal: Erythema, Tenderness, Warmth Integumentary: No rashes Neurological: Normal speech, Normal tone, Normal affect Lymphatics: No axilla or inguinal lymphadenopathy Laboratory Data at Discharge: WBC 11.2 K/uL (4.3-10.9) H D 05/21/17 04:48 Hgb 11.9 g/dL (13.6-17.9) L 05/21/17 04:48 Hct 35.5 % (39.6-49.0) L 05/21/17 04:48 Plt Count 136 K/uL (152-406) L 05/21/17 04:48 PT 23.5 SECONDS (9.5-12.5) H 05/18/17 08:10 INR 1.98 05/18/17 08:10 APTT 36.9 SECONDS (24.3-36.9) 05/18/17 08:10 Sodium 133 mEq/L (135-145) L 05/21/17 04:48 Potassium 4.1 mEq/L (3.6-5.0) 05/21/17 04:48 BUN 25 mg/dL (6-20) H 05/21/17 04:48 Creatinine 1.71 mg/dL (0.61-1.24) H 05/21/17 04:48 Glucose 142 mg/dL (65-120) H 05/21/17 04:48 Phosphorus 2.2 mg/dL (2.5-4.3) L 05/21/17 04:48 Magnesium 1.9 mg/dL (1.8-2.5) 05/21/17 04:48 Total Bilirubin 1.7 mg/dL (0.3-1.2) H 05/21/17 04:48 AST 33 IU/L (10-42) 05/21/17 04:48 ALT 26 IU/L (10-60) 05/21/17 04:48 Alkaline Phosphatase 96 IU/L (42-121) 05/21/17 04:48 Home Medications: Carvedilol 3.125 mg PO BID #60 tablet 08/27/15 Furosemide [Lasix*] 40 mg PO BID #60 tab 08/27/15 Lisinopril [Prinivil*] 5 mg PO DAILY #30 tab 08/27/15 Rivaroxaban [Xarelto] 20 mg PO DAILY AT SUPPER #30 tablet 08/27/15 Vancomycin/0.9 % Sod Chloride [Vanco 2 Gram/250 ml-0.9% NaCl] 2 gm IV Q24H #14 plast..bag 05/21/17 New Medications: Vancomycin/0.9 % Sod Chloride [Vanco 2 Gram/250 ml-0.9% NaCl] 2 gm IV Q24H #14 plast..bag Diet: Regular Activity: Ad zeb Followup: Kvng Mojica MD [ACTIVE - CAN ADMIT] - 1-2 Days
[2017-05-21] MEDS: RIVAROXABAN 20 MG TABLET PO SCH (17:32)
[2017-05-21] MEDS: MUPIROCIN 2% OINT 22GM TUBE TOP SCH (20:14)
[2017-05-22] MEDS: NA CHLORIDE 0.9% 1,000 ML IV SCH (05:29)
[2017-05-22] MEDS: VANCOMYCIN 2 GM in NA CHLORIDE 0.9% 500 ML IVPB SCH (05:37)
--- NOTE | 2017-05-22 06:40 | RAD REPORT ---
EXAM DESCRIPTION: RAD - Chest Single View - 05/22/2017 5:59 am CLINICAL HISTORY: PICC line placement A preliminary report was provided at the time of the study. COMPARISON: October 2016 FINDINGS: Portable chest was obtained following placement of a right upper extremity PICC line. The catheter tip is in the mid SVC.
[2017-05-22] MEDS ORDERED: COLLAGENASE 30 GM OINTMENT TOP SCH (09:00)
[2017-05-22] MEDS: MUPIROCIN 2% OINT 22GM TUBE TOP SCH (09:00)
[2017-05-22] MEDS: DOCUSATE NA 100 MG CAP PO SCH (09:00)
[2017-05-22] MEDS: CARVEDILOL 3.125 MG TAB PO SCH (09:21)
[2017-05-22] MEDS: FUROSEMIDE 40 MG TABLET PO SCH (09:21)
[2017-05-22] MEDS: CEFEPIME/SWI 2gm 2 GM/20 ML SYR IV SCH (09:22)
[2017-05-22] MEDS: LISINOPRIL 5 MG TAB PO SCH (09:22)
== END 2017-05-22 13:19 | DRG 603 ==
LOC: ER 07:55 → OBSVTOIN 09:51 → ERHOLD 09:51 → 2ND 11:27
PROVIDERS: ADMIT Family Medicine; ATTEND Family Medicine
PROC: 02HV33Z Insertion of Infusion Device into Superior Vena Cava, Percutaneous Approach (ICD-10-PCS; principal; 2017-05-22)
DX: L03.116 Cellulitis of left lower limb (principal); I50.22 Chronic systolic (congestive) heart failure; I87.313 Chronic venous hypertension (idiopathic) with ulcer of bilateral lower extremity; I11.0 Hypertensive heart disease with heart failure; E78.2 Mixed hyperlipidemia; E11.9 Type 2 diabetes mellitus without complications; E66.9 Obesity, unspecified; Z68.38 Body mass index [BMI] 38.0-38.9, adult; B95.62 Methicillin resistant Staphylococcus aureus infection as the cause of diseases classified elsewhere; Z79.01 Long term (current) use of anticoagulants
CPT/HCPCS: 36415; 71045; 80048; 80053; 80076; 80202; 81003; 81015; 82962; 83605; 83735; 84100; 84145; 85025; 85610; 85652; 85730; 87040; 87070; 87077; 87186; 87205; 96361; 96365; 96375; 99285; J0692; J2543; J3370; J3590; J7030

== ENCOUNTER 2020-05-15 13:27 | Inpatient (IN) | payer OTHER ==
[2020-05-15 14:00] LABS: Absolute Lymphocytes (CBC) 1.6 K/uL (0.7-4.9); Hematocrit 32.6 % (39.6-49.0); Lymphocytes % 21.8 % (15.3-44.8); MPV 8.6 fL (7.6-11.3); RBC Red Blood Cell Count 3.89 M/uL (4.33-5.43)
[2020-05-15 14:05] LABS: Protime INR 2.45
--- NOTE | 2020-05-15 14:08 | RAD REPORT ---
EXAM DESCRIPTION: RAD - Chest Single View - 05/15/2020 2:02 pm CLINICAL HISTORY: left side chest swelling;Chest pain Chest pain. COMPARISON: Chest Single View dated 05/22/2017; Chest Pa And Lat (2 Views) dated 10/03/2016; Chest Sing le View dated 08/23/2015; CHEST PA AND LAT 2 VIEW dated 11/27/2008 FINDINGS: Portable technique limits examination quality. Mild interstitial pulmonary edema. The heart is moderately enlarged in size. No displaced fractures.
[2020-05-15 14:13] LABS: ALT/SGPT 22 U/L (12-78); AST/SGOT 26 U/L (15-37); Albumin 3.2 g/dL (3.4-5.0); Alkaline Phosphatase 122 U/L (45-117); BUN Blood Urea Nitrogen 29 mg/dL (7-18); Bicarbonate 23 mmol/L (21-32); Bilirubin Direct 0.4 mg/dL (0-0.2); Bilirubin Total 0.9 mg/dL (0.2-1.0); Glucose Level 124 mg/dL (74-106); NT PRO-BNP 3231 pg/mL (<125); Potassium 4.1 mmol/L (3.5-5.1); Protein, Total 8.3 g/dL (6.4-8.2); Sodium Level 137 mmol/L (136-145); Troponin (Emerg Dept Use Only) < 0.02 ng/mL (0.0-0.045)
[2020-05-15] MEDS ORDERED: FENTANYL CITR 100 MCG/2 ML ONE ×2 (14:19→16:29)
--- NOTE | 2020-05-15 15:08 | RAD REPORT ---
EXAM DESCRIPTION: CT - Thorax Wo Con CLINICAL HISTORY: Chest pain left side chest swelling COMPARISON: No comparisons FINDINGS: A 10 x 6 cm hematoma is present along the left upper chest soft tissues. There is surround ing skin thickening and mild inflammation along the left chest wall extending along the left lateral thoracic cage. Fibroemphysematous changes are present throughout the lungs. No pneumothorax is present. Trace pleural fluid. The heart size is prominent. No displaced rib fracture. 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 All CT scans are performed using dose optimization technique as appropriate and may include automated exposure control or mA/KV adjustment according to patient size. IMPRESSION: 10 cm soft tissue hematoma with surrounding soft tissue inflammation left upper chest.No fracture is seen.
--- NOTE | 2020-05-15 15:47 | ER ---
Nurse's Notes [facility] Name: Elijah Linares Age: 70 yrs Sex: Male : 1950 Arrival Date: 05/15/2020 Time: 13:31 Bed 24 Private MD: Diagnosis: Left Chest Wall Hematoma Presentation: 05/15 13:32 Chief complaint: Patient states: Bruising and swelling to L sided chest wall that ss patient noticed today. Pt reports he fell on Sunday, but caught himself and pulled something with his L arm. Coronavirus screen: Client denies travel out of the [place] in the last 14 days. Ebola Screen: Patient denies exposure to infectious person. Patient denies travel to an Ebola-affected area in the 21 days before illness onset. Initial Sepsis Screen: Does the patient meet any 2 criteria? No. Patient's initial sepsis screen is negative. Does the patient have a suspected source of infection? No. Patient's initial sepsis screen is negative. Risk Assessment: Do you want to hurt yourself or someone else? Patient reports no desire to harm self or others. Onset of symptoms was May 15, 2020. 13:32 Method Of Arrival: EMS: [facility] 13:32 Acuity: NADIYA 3 ss Historical: - Allergies: 13:36 No Known Allergies; ss - PMHx: 13:36 Cellulitis; Diabetes - NIDDM; Diabetic ulcers; Hypertension; ss - Immunization history:: Adult Immunizations up to date. - Social history:: Smoking status: Patient denies any tobacco usage or history of. Screenin:16 Abuse screen: Denies threats or abuse. Nutritional screening: No deficits noted. vg1 Tuberculosis screening: No symptoms or risk factors identified. Fall Risk No fall in past 12 months (0 pts). No secondary diagnosis (0 pts). IV access (20 points). Ambulatory Aid- None/Bed Rest/Nurse Assist (0 pts). Gait- Normal/Bed Rest/Wheelchair (0 pts) Mental Status- Oriented to own ability (0 pts). Total Penn Fall Scale indicates No Risk (0-24 pts). Assessment: 14:13 General: Appears in no apparent distress. uncomfortable, Behavior is calm, cooperative. vg1 Pain: Complains of pain in Left anterior chest wall Pain currently is 10 out of 10 on a pain scale. Pain began 2-3 days ago. Neuro: Level of Consciousness is awake, alert, obeys commands, Oriented to person, place, time, situation. Cardiovascular: Patient's skin is warm and dry. Respiratory: Airway is patent Respiratory effort is even, unlabored. GI: No signs and/or symptoms were reported involving the gastrointestinal system. : No signs and/or symptoms were reported regarding the genitourinary system. EENT: No signs and/or symptoms were reported regarding the EENT system. Derm: Bruising that is dark purple, on anterior aspect of left upper chest and left lateral anterior chest. Derm: Wound noted left lower leg; patient reports this is prexisting that is being taken care of at home by a homehealth nurse. Musculoskeletal: Circulation, motion, and sensation intact. 15:14 Reassessment: Patient appears in no apparent distress at this time. No changes from vg1 previously documented assessment. Patient and/or family updated on plan of care and expected duration. Pain level reassessed. Patient is alert, oriented x 3, equal unlabored respirations, skin warm/dry/pink. 16:30 Reassessment: Patient appears in no apparent distress at this time. No changes from vg1 previously documented assessment. Patient and/or family updated on plan of care and expected duration. Pain level reassessed. Patient is alert, oriented x 3, equal unlabored respirations, skin warm/dry/pink. 17:30 Reassessment: Patient appears in no apparent distress at this time. Patient and/or vg1 family updated on plan of care and expected duration. Pain level reassessed. Patient is alert, oriented x 3, equal unlabored respirations, skin warm/dry/pink. 18:42 Reassessment: Patient appears in no apparent distress at this time. Patient and/or vg1 family updated on plan of care and expected duration. Pain level reassessed. Patient is alert, oriented x 3, equal unlabored respirations, skin warm/dry/pink. 20:04 Reassessment: Attempted to call report. vg1 20:24 Reassessment: Attempted to call report. vg1 Vital Signs: 13:32 BP 143 / 63; Pulse 63; Resp 18; Temp 97.9(TE); Pulse Ox 100% on R/A; Weight 126.1 kg; ss Height 5 ft. 11 in. (180.34 cm); Pain 8/10; 13:45 BP 148 / 58; Pulse 47; Resp 14; Pulse Ox 100% on R/A; vg1 15:00 BP 124 / 57; Pulse 50; Resp 16; Pulse Ox 100% ; vg1 16:30 BP 109 / 51; Pulse 44; Resp 16; Pulse Ox 100% on R/A; vg1 17:15 BP 110 / 87; Pulse 49; Resp 18; Pulse Ox 99% on R/A; vg1 18:00 BP 138 / 53; Pulse 50; Resp 18; Pulse Ox 100% on R/A; vg1 18:45 BP 122 / 50; Pulse 50; Resp 18; Pulse Ox 100% on R/A; vg1 19:30 BP 133 / 67; Pulse 59; Resp 22; Pulse Ox 100% on R/A; vg1 13:32 Body Mass Index 38.77 (126.10 kg, 180.34 cm) ED Course: 13:31 Patient arrived in ED. vg1 13:33 Zelalem Bazan PA is PHCP. cp 13:33 Navdeep Mcgrath MD is Attending Physician. cp 13:36 Triage completed. ss 13:36 Arm band placed on right wrist. ss 13:50 Initial lab(s) drawn, by me, sent to lab. Maintain EMS IV. Dressing intact. Good blood jp3 return noted. Site clean \T\ dry. Gauge \T\ site: 18 gauge LAC. 13:59 Joanne Hernandez, RN is Primary Nurse. vg1 14:02 XRAY Chest (1 view) In Process Unspecified. EDMS 14:16 Patient has correct armband on for positive identification. Bed in low position. Call vg1 light in reach. Side rails up X2. 14:49 CT Chest Wo Con In Process Unspecified. EDMS 15:45 Lopez Wagoner is Hospitalizing Provider. cp 20:37 No provider procedures requiring assistance completed. Patient admitted, IV remains in vg1 place. Administered Medications: 14:12 Drug: fentaNYL (PF) 25 mcg Route: IVP; Site: left antecubital; vg1 15:35 Follow up: Response: No adverse reaction; Pain is decreased vg1 15:42 Drug: Clindamycin 900 mg Route: IVPB; Infused Over: 30 mins; Site: left antecubital; vg1 16:15 Follow up: IV Status: Completed infusion vg1 15:47 CANCELLED (Physician Discretion): Kcentra 500 unit 500 units IV at calculated rate once cp 16:27 Not Given (Medication unavailable per pharmacist. SKIP Nam notified and has spoke ss with pharmacist. ): Kcentra 1,000 unit 2000 units IV at calculated rate once 16:29 Drug: fentaNYL (PF) 25 mcg Route: IVP; Site: left antecubital; vg1 17:30 Follow up: Response: No adverse reaction; Pain is decreased vg1 Outcome: 15:47 Decision to Hospitalize by Provider. cp 20:37 Admitted to Med/surg accompanied by tech, via wheelchair, room 430, with chart, Report vg1 called to JAMARCUS Garibay 20:37 Condition: stable 20:37 Instructed on the need for admit. 20:51 Patient left the ED. vg1 Signatures: Dispatcher [employer] EDMichelle Alvarado RN RN Zelalem Almendarez PA PA Romulo Pinto jp3 Joanne Hernandez, RN RN vg1
--- NOTE | 2020-05-15 15:47 | EDPHYS ---
Physician Documentation [facility] Name: Elijah Linares Age: 70 yrs Sex: Male : 1950 Arrival Date: 05/15/2020 Time: 13:31 Bed 24 Private MD: ED Physician Navdeep Mcgrath HPI: 05/15 13:40 This 70 yrs old Male presents to ER via EMS with complaints of Left Side cp Chest Pain. 13:40 The patient or guardian reports chest pain that is located primarily in the anterior cp chest wall, left. 13:40 Onset: this morning. The pain does not radiate. Associated signs and symptoms: cp Pertinent positives: swelling, ecchymosis. The chest pain is described as aching. Patient reports noticing swelling and pain to left side of chest since this morning. Denies trauma. Reports taking Xarelto for history of Afib. Historical: - Allergies: 13:36 No Known Allergies; ss - PMHx: 13:36 Cellulitis; Diabetes - NIDDM; Diabetic ulcers; Hypertension; ss - Immunization history:: Adult Immunizations up to date. - Social history:: Smoking status: Patient denies any tobacco usage or history of. ROS: 13:50 Constitutional: Negative for body aches, chills, fever, poor PO intake. cp 13:50 Eyes: Negative for injury, pain, redness, and discharge. cp 13:50 Neck: Negative for pain with movement, pain at rest, stiffness. 13:50 Cardiovascular: Positive for chest pain, of the left side of chest, Negative for edema, palpitations. 13:50 Respiratory: Negative for cough, shortness of breath, wheezing. 13:50 Abdomen/GI: Negative for abdominal pain, nausea, vomiting, and diarrhea. 13:50 Back: Negative for pain at rest, pain with movement, radiated pain. 13:50 Neuro: Negative for altered mental status, dizziness, headache, syncope, weakness. 13:50 All other systems are negative. Exam: 13:55 ECG was reviewed by the Attending Physician. cp 13:57 Constitutional: The patient appears in no acute distress, alert, awake, cp non-diaphoretic, non-toxic, well developed, well nourished. 13:57 Head/Face: Normocephalic, atraumatic. cp 13:57 Eyes: Periorbital structures: appear normal, Conjunctiva: normal, no exudate, no injection, Sclera: no appreciated abnormality, Lids and lashes: appear normal, bilaterally. 13:57 ENT: External ear(s): are unremarkable, Nose: is normal, Posterior pharynx: is normal, airway is patent. 13:57 Neck: ROM/movement: is normal, is supple, without pain, no range of motions limitations, no nuchal rigidity. 13:57 Chest/axilla: Inspection: ecchymosis, that is moderate, of the anterior aspect of left upper chest, left lateral anterior chest and left breast swelling and induration, Palpation: crepitus, is not appreciated, tenderness, that is moderate, of the anterior aspect of left upper chest, left lateral anterior chest and left breast. 13:57 Cardiovascular: Rate: bradycardic, Rhythm: irregular, Edema: ankle edema, that is moderate, JVD: is not appreciated. 13:57 Respiratory: the patient does not display signs of respiratory distress, Respirations: normal, no use of accessory muscles, no retractions, labored breathing, is not present, Breath sounds: are clear throughout, no decreased breath sounds. 13:57 Abdomen/GI: Inspection: abdomen appears normal, Palpation: abdomen is soft and non-tender, in all quadrants. 13:57 Back: pain, is absent, ROM is normal. Vital Signs: 13:32 BP 143 / 63; Pulse 63; Resp 18; Temp 97.9(TE); Pulse Ox 100% on R/A; Weight 126.1 kg; ss Height 5 ft. 11 in. (180.34 cm); Pain 8/10; 13:45 BP 148 / 58; Pulse 47; Resp 14; Pulse Ox 100% on R/A; vg1 15:00 BP 124 / 57; Pulse 50; Resp 16; Pulse Ox 100% ; vg1 16:30 BP 109 / 51; Pulse 44; Resp 16; Pulse Ox 100% on R/A; vg1 17:15 BP 110 / 87; Pulse 49; Resp 18; Pulse Ox 99% on R/A; vg1 18:00 BP 138 / 53; Pulse 50; Resp 18; Pulse Ox 100% on R/A; vg1 18:45 BP 122 / 50; Pulse 50; Resp 18; Pulse Ox 100% on R/A; vg1 19:30 BP 133 / 67; Pulse 59; Resp 22; Pulse Ox 100% on R/A; vg1 13:32 Body Mass Index 38.77 (126.10 kg, 180.34 cm) ss MDM: 13:34 Patient medically screened. cp 14:00 Differential diagnosis: pneumonia, pneumothorax, contusion, hematoma. cp 15:14 Data reviewed: vital signs, nurses notes, lab test result(s), EKG, radiologic studies, cp CT scan, plain films. Test interpretation: by ED physician or midlevel provider: ECG, plain radiologic studies. Physician consultation: Romulo Boswell MD was called at 15:15, left message on voicemail. 15:25 Physician consultation: Kvng Mojica MD was called at 15:25, was contacted at 15:25, cp regarding consult, patient's condition, would like admission per Dr. Lopez Wagoner will see patient Sunday. 15:33 Physician consultation: Lopez Wagoner was called at 15:30, was contacted at 15:30, cp regarding admission, to the telemetry unit. patient's condition, and will see patient in ED. 05/15 13:34 Order name: Basic Metabolic Panel; Complete Time: 14:16 cp 05/15 14:16 Interpretation: Normal except: GLUC 124; BUN 29; CRE 1.52; GFR 45. cp 05/15 13:34 Order name: CBC with Diff; Complete Time: 14:16 cp 05/15 14:18 Interpretation: Normal except: RBC 3.89; HGB 10.4; HCT 32.6; MCV 83.8; MCH 26.8; RDW cp 18.8; EOSINOPHIL % 5.7. 05/15 13:34 Order name: LFT's; Complete Time: 14:16 cp 05/15 13:34 Order name: Magnesium; Complete Time: 14:16 cp 05/15 13:34 Order name: NT PRO-BNP; Complete Time: 14:16 cp 05/15 13:34 Order name: PT-INR; Complete Time: 14:16 cp 05/15 13:34 Order name: Troponin (emerg Dept Use Only); Complete Time: 14:16 cp 05/15 13:34 Order name: XRAY Chest (1 view); Complete Time: 14:16 cp 05/15 13:34 Order name: Ptt, Activated; Complete Time: 14:16 cp 05/15 14:18 Order name: CT Chest Wo Con; Complete Time: 15:11 cp 05/15 15:12 Interpretation: Report reviewed. 05/15 17:21 Order name: COVID-19 : Document "Date of Symptom Onset" if Symptomatic. 05/15 17:46 Order name: CORONAVIRUS EDMS 05/15 18:32 Order name: SARS-COV-2 RT PCR EDMS 05/15 13:34 Order name: EKG; Complete Time: 13:34 cp 05/15 13:34 Order name: Cardiac monitoring; Complete Time: 13:50 cp 05/15 13:34 Order name: EKG - Nurse/Tech; Complete Time: 13:50 cp 05/15 13:34 Order name: IV Saline Lock; Complete Time: 13:50 cp 05/15 13:34 Order name: Labs collected and sent; Complete Time: 13:51 cp 05/15 13:34 Order name: O2 Per Protocol; Complete Time: 13:51 cp 05/15 13:34 Order name: O2 Sat Monitoring; Complete Time: 13:51 cp 05/15 15:49 Order name: Ice pack: apply to left chest wall; Complete Time: 16:07 cp EC:55 Rate is 53 beats/min. Rhythm is irregular. QRS interval is prolonged at 140 msec. QT cp interval is normal. T waves are Inverted in leads I, aVL, V2, V3, V4. Interpreted by me. Reviewed by me. Administered Medications: 14:12 Drug: fentaNYL (PF) 25 mcg Route: IVP; Site: left antecubital; vg1 15:35 Follow up: Response: No adverse reaction; Pain is decreased vg1 15:42 Drug: Clindamycin 900 mg Route: IVPB; Infused Over: 30 mins; Site: left antecubital; vg1 16:15 Follow up: IV Status: Completed infusion vg1 15:47 CANCELLED (Physician Discretion): Kcentra 500 unit 500 units IV at calculated rate once cp 16:27 Not Given (Medication unavailable per pharmacist. SKIP Nam notified and has spoke ss with pharmacist. ): Kcentra 1,000 unit 2000 units IV at calculated rate once 16:29 Drug: fentaNYL (PF) 25 mcg Route: IVP; Site: left antecubital; vg1 17:30 Follow up: Response: No adverse reaction; Pain is decreased vg1 Disposition: 05/15/20 15:47 Hospitalization ordered by Lopez Wagoner for Inpatient Admission. Preliminary diagnosis is Left Chest Wall Hematoma. - Bed requested for Telemetry/MedSurg (Inpatient). - Status is Inpatient Admission. vg1 - Condition is Stable. - Problem is new. - Symptoms have improved. Addendum: 05/17/2020 05:10 Co-signature as Attending Physician, Navdeep Mcgrath MD I agree with the assessment and t w4 plan of care. Signatures: Dispatcher [employer] EDMS Faby Hung RN RN dw Michelle Flanagan RN RN ss Zelalem Bazan PA PA cp Navdeep Mcgrath MD MD tw4 Joanne Hernandez RN RN vg1 Corrections: (The following items were deleted from the chart) 05/15 14:23 14:10 This 70 yrs old Male presents to ER via EMS with complaints of Left cp Side Chest Pain. cp 15:47 15:45 Kcentra 500 unit 500 units IV at calculated rate once ordered. cp cp 15:50 15:47 Hospitalization Ordered by Lopez Wagoner for Inpatient Admission. Preliminary cp diagnosis is Other chest pain. Bed requested for Telemetry/MedSurg (Inpatient). Status is Inpatient Admission. Condition is Stable. Problem is new. Symptoms have improved. cp 19:20 15:50 05/15/2020 15:47 Hospitalization Ordered by Lopez Wagoner for Inpatient dw Admission. Preliminary diagnosis is Left Chest Wall Hematoma. Bed requested for Telemetry/MedSurg (Inpatient). Status is Inpatient Admission. Condition is Stable. Problem is new. Symptoms have improved. cp 20:51 19:20 05/15/2020 15:47 Hospitalization Ordered by Lopez Wagoner for Inpatient vg1 Admission. Preliminary diagnosis is Left Chest Wall Hematoma. Bed requested for Telemetry/MedSurg (Inpatient). Status is Inpatient Admission. Condition is Stable. Problem is new. Symptoms have improved. dw
[2020-05-15] MEDS ORDERED: CLINDAMYCIN 900MG/D5W 900 MG/50 ML IVPB IV ONE (15:54)
--- NOTE | 2020-05-15 17:09 | P.HP ---
Certification for Inpatient Patient admitted to: Inpatient With expected LOS: >2 Midnights Practitioner: I am a practitioner with admitting privileges, knowledge of patient current condition, hospital course, and medical plan of care. 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 Patient report he might have use his left arm to lean too hard on a pole I might have torn a muscle. CT chest done in the emergency department shows a large hematoma in the left axillary area extending to the flank, about 10 cm in length. General surgery Dr. Mojica contacted. Patient is admitted for monitoring and pain control. Allergies No Known Allergies Allergy (Verified 10/26/15 18:40) Home Medications: Furosemide [Lasix*] 40 mg PO BID #60 tab 08/27/15 Rivaroxaban [Xarelto] 20 mg PO DAILY AT SUPPER #30 tablet 08/27/15 carvediloL [Carvedilol] 3.125 mg PO BID #60 tablet 08/27/15 lisinopriL [Prinivil*] 5 mg PO DAILY #30 tab 08/27/15 Vancomycin/0.9 % Sod Chloride [Vanco 2 Gram/250 ml-0.9% NaCl] 2 gm IV Q24H #14 plast..bag 05/21/17 Collagenase [Santyl Ointment*] 1 appl TOP DAILY tube 05/22/17 - Past Medical/Surgical History Diabetic: Yes -: DM (diet controlled) -: HTN -: Blood clot superior vena cava -: chonic left lower ext. diabetic wounds - Family History Father -: Stroke Mother -: Other (see notes) Notes: blood clots - Social History Alcohol use: Yes CD- Drugs: No Caffeine use: Yes Review of Systems Other: Except as documented, all other systems reviewed and negative. Physical Examination - Physical Exam General: Alert, In no apparent distress, Oriented x3 HEENT: Normocephalic, PERRLA, Mucous membr. moist/pink, Sclerae nonicteric Neck: Supple, JVD not distended Respiratory: Clear to auscultation bilaterally, Normal air movement Cardiovascular: No edema, Normal S1 S2, Irregular heart rate/rhythm Gastrointestinal: Normal bowel sounds, Soft and benign, Non-distended Musculoskeletal: Swelling (Bilateral lower extremities), Erythema (Bilateral lower extremities), Other (Large bruise-left axilla and flank of chest) Integumentary: Other (Bilateral lower extremity venostasis dermatitis) Neurological: Normal speech, Normal strength at 5/5 x4 extr, Cranial nerves 3-12 intact - Studies Laboratory Data (last 24 hrs) 05/15/20 13:45: PT 28.4 H, INR 2.45, APTT 43.4 H 05/15/20 13:45: WBC 7.40, Hgb 10.4 L, Hct 32.6 L, Plt Count 199 05/15/20 13:45: Sodium 137, Potassium 4.1, BUN 29 H, Creatinine 1.52 H, Glucose 124 H, Magnesium 2.0, Total Bilirubin 0.9, AST 26, ALT 22, Alkaline Phosphatase 122 H Assessment and Plan - Problems (Diagnosis) (1) Chest wall hematoma Current Visit: Yes Status: Acute (2) Chronic atrial fibrillation Current Visit: Yes Status: Chronic (3) History of DVT (deep vein thrombosis) Current Visit: Yes Status: Chronic (4) Stasis dermatitis of lower extremity due to peripheral venous hypertension Current Visit: Yes Status: Chronic - Plan Admit to the medical floor. Supportive measures. IV morphine p.r.n. for pain Monitor H and H and transfuse p.r.n. Hold [facility]arel[facility] but not available in this facility. Serial examination to monitor size of hematoma. General surgery consult-Dr. Mojica is aware. Empiric antibiotics-IV clindamycin and Rocephin. - Advance Directives Does patient have a Living Will: No Does patient have a Durable POA for Healthcare: No
[2020-05-15] MEDS ORDERED: ONDANSETRON 4 MG/2 ML VIAL IV PRN (21:03)
[2020-05-15] MEDS ORDERED: ACETAMINOPHEN 500 MG TAB PO PRN (21:03)
[2020-05-15 21:36] LABS: Hematocrit 34.1 % (39.6-49.0)
[2020-05-15 21:39] VITALS: BMI 38.5
[2020-05-15] MEDS: MORPHINE 4 MG/ML SYR IV PRN (22:15)
[2020-05-15] MEDS ORDERED: CLINDAMYCIN IV 150 MG/ML (6 mL) VIAL ONE (22:29)
[2020-05-15] MEDS: CLINDAMYCIN INJ 600 MG in NA CHLORIDE 0.9% 50 ML IV SCH (22:29)
[2020-05-15] MEDS ORDERED: NA CHLORIDE 0.9% 50 ML ONE (22:30)
[2020-05-15] MEDS ORDERED: NA CHLORIDE 0.9% 250 ML ONE (22:32)
[2020-05-16 01:11] LABS: Urine Appearance CLEAR; Urine Bilirubin NEGATIVE (NEG); Urine Blood NEGATIVE (NEG); Urine Color DK YELLOW; Urine Glucose NEGATIVE (NEG); Urine Protein 1+ (NEG)
[2020-05-16 01:14] LABS: Urine Microscopic Reflex ORDER UMIC
[2020-05-16 01:33] LABS: Urine Bacteria 20-50 /HPF (NONE SEEN); Urine RBC <5 /HPF (NONE SEEN)
[2020-05-16] MEDS ORDERED: CLINDAMYCIN IV 150 MG/ML (6 mL) VIAL ONE (04:03)
[2020-05-16] MEDS ORDERED: NA CHLORIDE 0.9% 50 ML ONE (04:04)
[2020-05-16] MEDS: CLINDAMYCIN INJ 600 MG in NA CHLORIDE 0.9% 50 ML IV SCH ×6 (04:14→23:04)
[2020-05-16 06:33] LABS: Absolute Lymphocytes (CBC) 1.1 K/uL (0.7-4.9); Basophils % 0.6 % (0-1.3); Hematocrit 31.1 % (39.6-49.0); Lymphocytes % 16.6 % (15.3-44.8); MPV 8.5 fL (7.6-11.3); RBC Red Blood Cell Count 3.75 M/uL (4.33-5.43)
[2020-05-16 07:10] LABS: Magnesium 2.1 mg/dL (1.8-2.4); Phosphorus 3.4 mg/dL (2.5-4.9)
[2020-05-16] MEDS: MORPHINE 4 MG/ML SYR IV PRN (07:49)
[2020-05-16] MEDS: CEFTRIAXONE/SWI 1gm 1 GM/10 ML SYR IV SCH (07:50)
[2020-05-16] MEDS ORDERED: CEFTRIAXONE 1 GM/NS 50 ML 1 GM/50 ML BAG IV SCH (09:00)
--- NOTE | 2020-05-16 10:23 | EKG ---
Test Date: 2020-05-15 Test Time: 13:49:48 Hotel Assistant Manager: MEASUREMENT RESULTS: Intervals: Rate: 53 CA: QRSD: 140 QT: 564 QTc: 529 [place]: P: CA: QRS: -39 T: 131 INTERPRETIVE STATEMENTS: Atrial fibrillation with slow ventricular response Left axis deviation Right bundle branch block T wave abnormality, consider lateral ischemia Abnormal ECG Compared to ECG 05/15/2020 13:48:08 Left-axis deviation now present Right bundle-branch block now present T-wave abnormality now present Possible ischemia now present Sinus bradycardia no longer present Atrial premature complex(es) no longer present Aberrant conduction of supraventricular beat(s) no longer present Myocardial infarct finding no longer present Electronically Signed On 05-16-20 10:22:02 CDT by Bobby Banks
[2020-05-16 10:46] LABS: Hematocrit 32.9 % (39.6-49.0)
--- NOTE | 2020-05-16 12:42 | P.PN ---
Subjective Date of Service: 05/16/20 Chief Complaint: Chest wall pain, swelling and bruise The left axilla hematoma has increased and involving the left pectoralis area and the left flank. Patient reports less pain. He denies any arm pain or numbness. Physical Examination - Vital Signs Temperature: 97.2 F Blood Pressure: 112/49 Pulse: 51 Respirations: 18 Pulse Ox (%): 100 - Physical Exam General: Alert, In no apparent distress, Oriented x3 Neck: Supple, JVD not distended Respiratory: Clear to auscultation bilaterally, Normal air movement Cardiovascular: No edema, Normal S1 S2, Irregular heart rate/rhythm Gastrointestinal: Soft and benign, Non-distended, No tenderness Musculoskeletal: Other (Large swelling/hematoma with bruising in the left axilla and left flank.) Neurological: Normal strength at 5/5 x4 extr, Cranial nerves 3-12 intact - Studies Laboratory Data (last 24 hrs) 05/15/20 13:45: PT 28.4 H, INR 2.45, APTT 43.4 H 05/15/20 13:45: WBC 7.40, Hgb 10.4 L, Hct 32.6 L, Plt Count 199 05/15/20 13:45: Sodium 137, Potassium 4.1, BUN 29 H, Creatinine 1.52 H, Glucose 124 H, Magnesium 2.0, Total Bilirubin 0.9, AST 26, ALT 22, Alkaline Phosphatase 122 H Assessment And Plan - Current Problems (Diagnosis) (1) Chest wall hematoma Current Visit: Yes Status: Acute (2) Chronic atrial fibrillation Current Visit: Yes Status: Chronic (3) History of DVT (deep vein thrombosis) Current Visit: Yes Status: Chronic (4) Stasis dermatitis of lower extremity due to peripheral venous hypertension Current Visit: Yes Status: Chronic - Plan Continue supportive measures. IV morphine p.r.n. for pain Monitor H and H and transfuse p.r.n. Continue to hold Xarelto Recommended Kcentra to reverse Xarelto but not available in this facility. Continue to monitor size of hematoma. Case discussed with Dr. Mojica. General consensus is medical management. Ice pack. Antibiotics. Serial upper extremity neurovascular checks. Continue IV antibiotics.
[2020-05-16 16:08] VITALS: O2SAT 98
[2020-05-17 04:05] LABS: Absolute Lymphocytes (CBC) 1.6 K/uL (0.7-4.9); Basophils % 1.1 % (0-1.3); Hematocrit 28.8 % (39.6-49.0); Lymphocytes % 26.1 % (15.3-44.8); MPV 8.4 fL (7.6-11.3); RBC Red Blood Cell Count 3.44 M/uL (4.33-5.43)
[2020-05-17 04:24] LABS: Magnesium 2.1 mg/dL (1.8-2.4); Phosphorus 3.3 mg/dL (2.5-4.9); Potassium 4.3 mmol/L (3.5-5.1)
[2020-05-17] MEDS: CLINDAMYCIN INJ 600 MG in NA CHLORIDE 0.9% 50 ML IV SCH ×2 (05:51→12:08)
[2020-05-17] MEDS: CEFTRIAXONE/SWI 1gm 1 GM/10 ML SYR IV SCH (08:51)
--- NOTE | 2020-05-17 11:53 | P.DS ---
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 Patient report he might have use his left arm to lean too hard on a pole I might have torn a muscle. CT chest done in the emergency department shows a large hematoma in the left axillary area extending to the flank, about 10 cm in length. General surgery Dr. Mojica contacted. Patient admitted for monitoring and pain control. Hospital Course: Patient admitted to the medical floor and closely monitored. The left axilla hematoma increased to involve the left pectoral region. Patient initially had pain which subsided within 24 hrs. Hemoglobin was monitored which was stable. Patient suspect he might have on her muscle. There were no neurovascular changes in the left arm. Patient remained stable on supportive measures. He was seen by general surgery-Dr. Mojica who recommended only medical treatment at this time. Given that patient has numerous locations of DVT including the vena cava, history of dilated cardiomyopathy and chronic atrial fibrillation with high risk for cardiac thrombus formation and stroke as well as increasing venous thromboembolism, benefit of anticoagulation at this time outweighs the risk of hematoma. His hemoglobin has been stable indicating the bleeding has stopped. General consensus is to resume the Xarelto. Patient considered stable for discharge to follow with Dr. Mojica during the course of this week. Vital Signs/Physical Exam: Temp Pulse Resp BP Pulse Ox 97.3 F 59 16 119/52 L 99 05/17/20 08:00 05/17/20 08:00 05/17/20 04:00 05/17/20 08:00 05/17/20 08:00 General: Alert, In no apparent distress, Oriented x3 HEENT: Atraumatic, Mucous membr. moist/pink Neck: Supple, JVD not distended Respiratory: Clear to auscultation bilaterally, Normal air movement Cardiovascular: Normal S1 S2, Edema (Bilateral lower extremities), Irregular heart rate/rhythm Gastrointestinal: Soft and benign, Non-distended, No ascites, No tenderness Musculoskeletal: Other (Bilateral lower extremity venostasis dermatitis) Neurological: Normal speech, Normal strength at 5/5 x4 extr Laboratory Data at Discharge: WBC 5.90 K/uL (4.3-10.9) 05/17/20 03:32 Hgb 9.2 g/dL (13.6-17.9) L 05/17/20 03:32 Hct 28.8 % (39.6-49.0) L 05/17/20 03:32 Plt Count 204 K/uL (152-406) 05/17/20 03:32 PT 28.4 SECONDS (9.5-12.5) H 05/15/20 13:45 INR 2.45 05/15/20 13:45 APTT 43.4 SECONDS (24.3-36.9) H 05/15/20 13:45 Sodium 138 mmol/L (136-145) 05/17/20 03:32 Potassium 4.3 mmol/L (3.5-5.1) 05/17/20 03:32 BUN 27 mg/dL (7-18) H 05/17/20 03:32 Creatinine 1.34 mg/dL (0.55-1.3) H 05/17/20 03:32 Glucose 114 mg/dL (74-106) H 05/17/20 03:32 Phosphorus 3.3 mg/dL (2.5-4.9) 05/17/20 03:32 Magnesium 2.1 mg/dL (1.8-2.4) 05/17/20 03:32 Total Bilirubin 0.9 mg/dL (0.2-1.0) 05/15/20 13:45 AST 26 U/L (15-37) 05/15/20 13:45 ALT 22 U/L (12-78) 05/15/20 13:45 Alkaline Phosphatase 122 U/L (45-117) H 05/15/20 13:45 Home Medications: Furosemide [Lasix*] 40 mg PO BID #60 tab 08/27/15 carvediloL [Carvedilol] 3.125 mg PO BID #60 tablet 08/27/15 lisinopriL [Prinivil*] 5 mg PO DAILY #30 tab 08/27/15 Rivaroxaban [Xarelto] 20 mg PO DAILY AT SUPPER 05/16/20 Cefuroxime Axetil [Cefuroxime] 500 mg PO BID #14 tab 05/17/20 Codeine/APAP [Tylenol W/Codeine #3 tab] 1 tab PO Q6HP PRN #40 tab 05/17/20 New Medications: Codeine/APAP [Tylenol W/Codeine #3 tab] 1 tab PO Q6HP PRN #40 tab PRN Reason: Pain Cefuroxime Axetil [Cefuroxime] 500 mg PO BID #14 tab Diet: ADA Activity: Fall precautions Followup: Kvng Mojica MD [ACTIVE - CAN ADMIT] - 05/20/20 (call to schedule an appointment for in the wound healing clinic ) CLAIR STORY [OUTSIDE PHYSICIAN] - 1-2 Weeks (PCP- call to schedule an appointment ) Time spent managing pt's care (in minutes): 34
[2020-05-17 11:57] VITALS: BP 106/45; TEMP 97.2
--- NOTE | 2020-05-17 13:02 | CON ---
Date of Consultation: 05/15/2020 Please note, telephonically I was following the patient since that time. I was out of town and I marce luated the patient in person today. Reason For Consultation: Hematoma on left chest. History Of Present Illness: The patient is a 70-year-old gentleman with multiple medical problems in cluding AFib and DVT, on Xarelto, who had a minor trauma with bleeding and pain in the left chest. H e came to the ER. Had workup done, which showed a hematoma. The patient was admitted for monitoring and pain control, and I was consulted. He is awake, alert. Pain has gotten better over the last 48 hours and the hematoma size has not significantly increased. The bruising, however, looks a little worse further in the subcutaneous tissue. The patient does have a little difficulty getti ng out of bed, but is doing better. No sore throat, runny nose, cough, headaches, or dizziness. No chest pain. No fever or chills. Review of Systems: Otherwise unremarkable. Past Medical History: Significant for diabetes type 2, hypertension, DVT, chronic left lower extremi ty venous ulceration wounds which I have been following [facility]. Allergies: NONE. Social History: The patient does not smoke. Drinks occasionally. Family History: Noncontributory. Physical Examination: Vital Signs: His vitals are stable. He is afebrile. General: He is awake, alert, and oriented x3. Head and Neck: Cranial 2 through 12 gross within normal limits. No neck masses. No JVD. Throat cl ear. Neck is supple. Chest: Clear. Heart: S1, S2. Abdomen: Soft. Extremities: Neurovascularly intact. Dressing is clean dry and intact on the left lower extremity. On the left axilla and left chest wall, there was a palpable hematoma and there is bruising around i t and a little bit of tenderness. There is no warmth or edema. Neuro: Nonfocal. Laboratory Data: H and H on admission were 10.4 and 32.6, today are 9.2 and 28.8. INR is 2.45 on ad mission. Chemistry reviewed. Assessment: A 70-year-old gentleman with hematoma on left chest wall near the axilla. Please note, the patient is neurovascularly intact in the left upper extremity. Recommendations: As H and H are essentially stable and pain is controlled, the patient can be discha rged. He can follow up with me in the [facility] in a week or 2. If the hematoma liquifie s and he is still symptomatic, a needle can be used for aspiration. At this point, however, the thomas ent is symptomatically improving, pain management and ice pack should suffice. We will follow this p atient in the [facility]. The patient can be restarted on Xarelto. Plan care discussed wi Dr. Wagoner. /LISA Voice ID: [id number] Report ID: [id number]
== END 2020-05-17 13:10 | disposition home or self-care (01) | DRG 605 ==
LOC: ER 13:27 → ERHOLD 16:56 → 4TH 20:37
PROVIDERS: ADMIT Internal Medicine; ATTEND Internal Medicine
DX: S20.212A Contusion of left front wall of thorax, initial encounter (principal); I48.20 Chronic atrial fibrillation, unspecified; I87.303 Chronic venous hypertension (idiopathic) without complications of bilateral lower extremity; E11.9 Type 2 diabetes mellitus without complications; I87.2 Venous insufficiency (chronic) (peripheral); I10 Essential (primary) hypertension; Z86.718 Personal history of other venous thrombosis and embolism; Z79.01 Long term (current) use of anticoagulants; Z20.822 Contact with and (suspected) exposure to COVID-19
CPT/HCPCS: 36415; 71045; 71250; 80048; 80076; 81003; 81015; 82947; 83735; 83880; 84100; 84484; 85014; 85018; 85025; 85610; 85730; 87086; 87088; 93005; 96365; 96375; 99285; J0696; J3010; J7050; U0003

== ENCOUNTER 2020-09-06 14:33 | Inpatient (IN) | payer OTHER ==
[2020-09-06 15:58] LABS: Absolute Lymphocytes (CBC) 0.6 K/uL (0.7-4.9); Basophils % 0.3 % (0-1.3); Hematocrit 37.1 % (39.6-49.0); Lymphocytes % 4.8 % (15.3-44.8); MPV 8.9 fL (7.6-11.3); RBC Red Blood Cell Count 4.61 M/uL (4.33-5.43)
--- NOTE | 2020-09-06 16:02 | RAD REPORT ---
EXAM DESCRIPTION: RAD - Chest Single View - 09/06/2020 3:52 pm CLINICAL HISTORY: COUGH Chest pain. COMPARISON: Chest Single View dated 05/15/2020; Chest Single View dated 05/22/2017; Chest Pa And Lat ( 2 Views) dated 10/03/2016; Chest Single View dated 08/23/2015 FINDINGS: Portable technique limits examination quality. Mild pulmonary edema pattern is seen. The heart is moderately enlarged. No displaced fractures. IMPRESSION: Mild to moderate CHF.
[2020-09-06 16:05] LABS: Protime INR 1.65
--- NOTE | 2020-09-06 16:13 | ER ---
Nurse's Notes [facility] Name: Elijah Linares Age: 70 yrs Sex: Male : 1950 Arrival Date: 09/06/2020 Time: 14:40 Bed 3 Private MD: Diagnosis: Cellulitis and acute lymphangitis of other parts of limb-chronic ulcer right medial ankle;Venous insufficiency (chronic) (peripheral);Type 2 diabetes mellitus with hyperglycemia;Obesity, unspecified;Unspecified atrial fibrillation;Acute kidney failure, unspecified;Unspecified combined systolic (congestive) and diastolic (congestive) heart failure;Elevated white blood cell count Presentation: 09/06 14:41 Chief complaint: Patient states: I started felling bad about 04:00 I was running a kg fever, light headed, and trouble walking. Coronavirus screen: Client denies travel out of the [place] in the last 14 days. At this time, unable to obtain information related to travel outside the [place] At this time, the client does not indicate any symptoms associated with coronavirus-19. Ebola Screen: Patient negative for fever greater than or equal to 101.5 degrees Fahrenheit, and additional compatible Ebola Virus Disease symptoms Patient denies exposure to infectious person. Patient denies travel to an Ebola-affected area in the 21 days before illness onset. Initial Sepsis Screen: Does the patient meet any 2 criteria? No. Patient's initial sepsis screen is negative. Does the patient have a suspected source of infection? No. Patient's initial sepsis screen is negative. Risk Assessment: Do you want to hurt yourself or someone else? Patient reports no desire to harm self or others. Onset of symptoms was September 06, 2020 at 04:00. 14:41 Method Of Arrival: EMS: [facility] kg 14:41 Acuity: NADIYA 3 kg Triage Assessment: 14:50 General: Appears in no apparent distress. Behavior is calm, cooperative, appropriate kg for age, quiet. Pain: Complains of pain in lateral aspect of left knee, lateral aspect of left calf, left lateral ankle, lateral aspect of left foot, posterior aspect of left knee, left calf, left Achilles, left heel, medial aspect of left knee, medial aspect of left calf, left medial ankle, medial aspect of left foot, left knee, left mehta, anterior aspect of left ankle and dorsum of left foot Pain radiates to left leg Pain currently is 1 out of 10 on a pain scale. level that patient reports is acceptable is 1 out of 10 on a pain scale. EENT: No deficits noted. Neuro: No deficits noted. Cardiovascular: No deficits noted. Heart tones S1 S2. Respiratory: Reports cough that is productive, Airway is patent Trachea midline Respiratory effort is even, unlabored, relaxed, Respiratory pattern is regular, Sputum is thick, Breath sounds are diminished. GI: No deficits noted. : No deficits noted. Derm:. Derm: Skin is fragile, is thin, Skin is dusky, red, Wound noted medial aspect of left calf, left medial ankle, left mehta and anterior aspect of left ankle. Historical: - Allergies: 14:45 No Known Allergies; kg - PMHx: 14:45 Cellulitis; Diabetic ulcers; Diabetes - NIDDM; Hypertension; Myocardial infarction; kg Atrial fibrillation; blood clot inferior vena cava; - Immunization history:: Adult Immunizations up to date, Client reports receiving the 1st dose of the Covid vaccine, August 23, 2020 Received Arnie \\T\\ [place] . - Social history:: Smoking status: Patient denies any tobacco usage or history of. - Family history:: not pertinent. Screenin:49 Abuse screen: Denies threats or abuse. Denies injuries from another. Nutritional kg screening: No deficits noted. Tuberculosis screening: No symptoms or risk factors identified. Fall Risk No fall in past 12 months (0 pts). Secondary diagnosis (15 points) impaired mobility, IV access (20 points). Ambulatory Aid- None/Bed Rest/Nurse Assist (0 pts). Gait- Impaired (20 pts.). Mental Status- Oriented to own ability (0 pts). Total Penn Fall Scale indicates Low Risk Score (25-44 pts). Fall prevention measures have been instituted. Side Rails Up X 2 Placed close to Nursing Station Frequent Obs/Assesments occuring As available Patient and Family Educated on Fall Prevention Program and strategies. Assessment: 17:00 General: Appears in no apparent distress. Behavior is calm, cooperative, appropriate kg for age, quiet. Pain: Complains of pain in left leg Pain currently is 2 out of 10 on a pain scale. at worst was 6 out of 10 on a pain scale. level that patient reports is acceptable is 2 out of 10 on a pain scale. Neuro: No deficits noted. Neuro: Level of Consciousness is awake, alert, obeys commands, Oriented to person, place, time, situation, Appropriate for age. Cardiovascular: No deficits noted. Cardiovascular: Heart tones S1 S2. Respiratory: No deficits noted. Respiratory: Airway is patent Trachea midline Respiratory effort is even, unlabored, relaxed, Respiratory pattern is regular, Breath sounds are clear bilaterally. GI: No deficits noted. : No signs and/or symptoms were reported regarding the genitourinary system. EENT: No deficits noted. Derm:. Derm: Decubitus located on left Ankle is stage III has macerated edges bed has granulation present. 17:47 Reassessment: Patient appears in no apparent distress at this time. Patient and/or ph family updated on plan of care and expected duration. Pain level reassessed. Pt resting quietly w/ eyes closed, respirations even and unlabored, mild snoring noted, awakens easily, Dr Wagoner at bedside to speak w/ pt about admission. 21:29 Reassessment: Patient and/or family updated on plan of care and expected duration. Pain ea level reassessed. Patient is alert, oriented x 3, equal unlabored respirations, skin warm/dry/pink. Admitted to second floor pt left ED via wheelchair per tech. Pt tolerating well. Vital Signs: 14:41 BP 117 / 50; Pulse 61; Resp 20; Temp 99.1(O); Pulse Ox 97% on R/A; Weight 124.74 kg kg (R); Height 5 ft. 11 in. (180.34 cm); Pain 1/10; 16:00 BP 126 / 66; Pulse 57; Resp 18; Pulse Ox 100% on R/A; ph 17:00 BP 109 / 40; Pulse 49; Resp 16; Pulse Ox 97% on R/A; ph 17:42 BP 83 / 35 LA Supine; Pulse 52; Resp 18; Pulse Ox 99% on R/A; ph 18:00 BP 105 / 39; Pulse 49; Resp 20; Pulse Ox 98% on R/A; kg 18:30 BP 110 / 44; Pulse 43; Resp 20; Pulse Ox 98% ; kg 19:00 BP 135 / 53; Pulse 80; Resp 20; Pulse Ox 95% on R/A; kg 21:30 BP 130 / 60; Pulse 50; Resp 18; Pulse Ox 98% ; ea 14:41 Body Mass Index 38.35 (124.74 kg, 180.34 cm) kg 17:42 Pt lying on R side, sleeping ph ED Course: 14:40 Patient arrived in ED. kg 14:41 Jamaica Montenegro, RN is Primary Nurse. kg 14:45 Triage completed. kg 15:10 Zelalem Romo MD is Attending Physician. divya 15:52 XRAY Chest (1 view) In Process Unspecified. EDMS 16:08 Lopez Wagonre is Hospitalizing Provider. divya 17:45 Patient has correct armband on for positive identification. Placed in gown. Bed in low ph position. Call light in reach. Side rails up X 1. youth nutritional monitor on. Pulse ox on. NIBP on. 19:52 COVID-19 : Document "Date of Symptom Onset" if Symptomatic. Sent. bs2 20:58 Primary Nurse role handed off by Jamaica Montenegro, RN mw2 21:29 Arm band placed on right wrist. Patient placed in an exam room, on a stretcher, on ea pulse oximetry. 21:29 No provider procedures requiring assistance completed. Patient admitted, IV remains in ea place. Administered Medications: 18:00 Drug: Meropenem 1 grams Route: IV; Rate: per protocol; Site: right antecubital; kg 18:40 Follow up: Response: No adverse reaction; Marked relief of symptoms; IV Status: kg Completed infusion; IV Intake: 100ml 18:00 Drug: Pepcid (famotidine) 20 mg Route: IVP; Site: right antecubital; kg 19:20 Follow up: Response: No adverse reaction kg 18:46 Drug: vancoMYCIN 1 grams Route: IVPB; Infused Over: 2 hrs; Site: right antecubital; kg 20:24 Drug: NS 0.9% 1000 ml Route: IV; Rate: 125 ml/hr; Site: right antecubital; ea Intake: 18:40 IV: 100ml; Total: 100ml. kg Outcome: 16:13 Decision to Hospitalize by Provider. divya 21:29 Admitted to Med/surg accompanied by tech, via wheelchair, with chart, Report called to ea Receiving nurse on second floor. 21:29 Condition: stable 21:29 Instructed on the need for admit, Demonstrated understanding of instructions. 21:37 Patient left the ED. ea Signatures: Dispatcher [employer] Zelalem Cervantes MD MD cha Hall, Patricia, RN RN Ashwini Evans RN RN ea [place], MyKena 2 Jamaica Montenegro RN RN kg Smith, Bridget bs2
--- NOTE | 2020-09-06 16:13 | EDPHYS ---
Physician Documentation [facility] Name: Elijah Linares Age: 70 yrs Sex: Male : 1950 Arrival Date: 09/06/2020 Time: 14:40 Bed 3 Private MD: ED Physician Zelalem Romo HPI: 09/06 16:02 This 70 yrs old Male presents to ER via EMS with complaints of left lower leg divya pain, red and hot. 16:02 The patient presents with decreased range of motion, an injury, pain, that is acute. divya The complaints affect the lateral aspect of left thigh, lateral aspect of left knee, lateral aspect of left calf, left hamstring, posterior aspect of left knee, left calf, medial aspect of left thigh, medial aspect of left knee, medial aspect of left calf, left quadriceps, left knee and left mehta. Context: The problem was sustained at an unknown site, resulted from a chronic condition, a repetitive motion, an unknown cause, chronic infections. Onset: The symptoms/episode began/occurred 3 day(s) ago. Modifying factors: The symptoms are alleviated by elevating leg, remaining still, the symptoms are aggravated by movement, weight bearing. Associated signs and symptoms: Pertinent positives: fever, swelling, warmth, weakness. Treatment prior to arrival includes: wound care doxy/bactrim. The patient reports fever, that was measured at 100 degrees Fahrenheit. Modifying factors: there are no obvious modifying factors. Historical: - Allergies: 14:45 No Known Allergies; kg - PMHx: 14:45 Cellulitis; Diabetic ulcers; Diabetes - NIDDM; Hypertension; Myocardial infarction; kg Atrial fibrillation; blood clot inferior vena cava; - Immunization history:: Adult Immunizations up to date, Client reports receiving the 1st dose of the Covid vaccine, August 23, 2020 Received Arnie \\T\\ Arnie . - Social history:: Smoking status: Patient denies any tobacco usage or history of. - Family history:: not pertinent. ROS: 16:02 Eyes: Negative for injury, pain, redness, and discharge, ENT: Negative for injury, divya pain, and discharge, Neck: Negative for injury, pain, and swelling, Cardiovascular: Negative for chest pain, palpitations, and edema, Respiratory: Negative for shortness of breath, cough, wheezing, and pleuritic chest pain, Abdomen/GI: Negative for abdominal pain, nausea, vomiting, diarrhea, and constipation, Back: Negative for injury and pain, : Negative for injury, bleeding, discharge, and swelling, Neuro: Negative for headache, weakness, numbness, tingling, and seizure, Psych: Negative for depression, anxiety, suicide ideation, homicidal ideation, and hallucinations, Allergy/Immunology: Negative for hives, rash, and allergies, Endocrine: Negative for neck swelling, polydipsia, polyuria, polyphagia, and marked weight changes, Hematologic/Lymphatic: Negative for swollen nodes, abnormal bleeding, and unusual bruising. 16:02 Constitutional: Positive for chills, fatigue, fever, malaise. 16:02 MS/extremity: Positive for decreased range of motion, pain, swelling, tenderness, of the lateral aspect of left thigh, lateral aspect of left knee, lateral aspect of left calf, left hamstring, posterior aspect of left knee, left calf, medial aspect of left thigh, medial aspect of left knee, medial aspect of left calf, left quadriceps, left knee and left mehta. 16:02 Skin: Positive for cellulitis, erythema, swelling, of the left leg. Exam: 16:02 Constitutional: This is a well developed, well nourished patient who is awake, alert, divya and in no acute distress. Head/Face: Normocephalic, atraumatic. Eyes: Pupils equal round and reactive to light, extra-ocular motions intact. Lids and lashes normal. Conjunctiva and sclera are non-icteric and not injected. Cornea within normal limits. Periorbital areas with no swelling, redness, or edema. ENT: Nares patent. No nasal discharge, no septal abnormalities noted. Tympanic membranes are normal and external auditory canals are clear. Oropharynx with no redness, swelling, or masses, exudates, or evidence of obstruction, uvula midline. Mucous membranes moist. Neck: Trachea midline, no thyromegaly or masses palpated, and no cervical lymphadenopathy. Supple, full range of motion without nuchal rigidity, or vertebral point tenderness. No Meningismus. Chest/axilla: Normal chest wall appearance and motion. Nontender with no deformity. No lesions are appreciated. Cardiovascular: Regular rate and rhythm with a normal S1 and S2. No gallops, murmurs, or rubs. Normal PMI, no JVD. No pulse deficits. Respiratory: Lungs have equal breath sounds bilaterally, clear to auscultation and percussion. No rales, rhonchi or wheezes noted. No increased work of breathing, no retractions or nasal flaring. Abdomen/GI: Soft, non-tender, with normal bowel sounds. No distension or tympany. No guarding or rebound. No evidence of tenderness throughout. Back: No spinal tenderness. No costovertebral tenderness. Full range of motion. Male : Normal genitalia with no discharge or lesions. Neuro: Awake and alert, GCS 15, oriented to person, place, time, and situation. Cranial nerves II-XII grossly intact. Motor strength 5/5 in all extremities. Sensory grossly intact. Cerebellar exam normal. Normal gait. Psych: Awake, alert, with orientation to person, place and time. Behavior, mood, and affect are within normal limits. 16:02 Musculoskeletal/extremity: ROM: full active range of motion, full passive range of motion, Circulation is intact in all extremities. decreased sensation, Compartment Syndrome exam of affected extremity: is normal. Weight bearing: able to fully bear weight, DVT Exam: negative Homans' sign noted on exam, no appreciated bluish discoloration, pain, swelling, tenderness, erythema, increased warmth. 16:02 Skin: cellulitis, that is moderate, induration, that is mild is noted, that is moderate is noted, injury, avulsion(s), of the left medial ankle. 16:13 ECG was reviewed by the Attending Physician. divya Vital Signs: 14:41 BP 117 / 50; Pulse 61; Resp 20; Temp 99.1(O); Pulse Ox 97% on R/A; Weight 124.74 kg kg (R); Height 5 ft. 11 in. (180.34 cm); Pain 1/10; 16:00 BP 126 / 66; Pulse 57; Resp 18; Pulse Ox 100% on R/A; ph 17:00 BP 109 / 40; Pulse 49; Resp 16; Pulse Ox 97% on R/A; ph 17:42 BP 83 / 35 LA Supine; Pulse 52; Resp 18; Pulse Ox 99% on R/A; ph 18:00 BP 105 / 39; Pulse 49; Resp 20; Pulse Ox 98% on R/A; kg 18:30 BP 110 / 44; Pulse 43; Resp 20; Pulse Ox 98% ; kg 19:00 BP 135 / 53; Pulse 80; Resp 20; Pulse Ox 95% on R/A; kg 21:30 BP 130 / 60; Pulse 50; Resp 18; Pulse Ox 98% ; ea 14:41 Body Mass Index 38.35 (124.74 kg, 180.34 cm) kg 17:42 Pt lying on R side, sleeping ph MDM: 15:10 Patient medically screened. [facility] 16:07 Differential diagnosis: tendonitis, bacterial infection, URI, pneumonia UTI. Data [facility] reviewed: vital signs, nurses notes, lab test result(s), EKG, radiologic studies, plain films. Data interpreted: environmental monitoring specialist: rate is 61 beats/min, rhythm is regular, Pulse oximetry: on room air is 97 %. Test interpretation: by ED physician or midlevel provider: ECG, plain radiologic studies. Counseling: I had a detailed discussion with the patient and/or guardian regarding: the historical points, exam findings, and any diagnostic results supporting the discharge/admit diagnosis, lab results, radiology results, the need for further work-up and treatment in the hospital. 09/06 15:13 Order name: Basic Metabolic Panel [facility] 09/06 15:13 Order name: CBC with Diff [facility] 09/06 15:13 Order name: LFT's [facility] 09/06 15:13 Order name: Magnesium [facility] 09/06 15:13 Order name: NT PRO-BNP [facility] 09/06 15:13 Order name: PT-INR [facility] 09/06 15:13 Order name: Troponin (emerg Dept Use Only); Complete Time: 17:12 [facility] 09/06 15:13 Order name: Procalcitonin; Complete Time: 17:12 [facility] 09/06 15:13 Order name: Lactate; Complete Time: 17:12 [facility] 09/06 15:13 Order name: Blood Culture Adult (2) [facility] 09/06 15:13 Order name: Urine Culture [facility] 09/06 15:13 Order name: Basic Metabolic Panel; Complete Time: 17:12 [facility] 09/06 15:13 Order name: CBC with Automated Diff [facility] 09/06 15:13 Order name: Liver (Hepatic) Function; Complete Time: 17:12 [facility] 09/06 15:13 Order name: XRAY Chest (1 view); Complete Time: 16:13 [facility] 09/06 15:13 Order name: EKG; Complete Time: 15:14 [facility] 09/06 15:13 Order name: Cardiac monitoring; Complete Time: 15:34 [facility] 09/06 15:13 Order name: EKG - Nurse/Tech; Complete Time: 15:34 [facility] 09/06 15:13 Order name: IV Saline Lock; Complete Time: 16:00 [facility] 09/06 15:13 Order name: Magnesium; Complete Time: 17:12 [facility] 09/06 15:13 Order name: NT PRO-BNP; Complete Time: 17:12 [facility] 09/06 15:13 Order name: Protime (+INR); Complete Time: 17:12 [facility] 09/06 16:02 Order name: COVID-19 : Document "Date of Symptom Onset" if Symptomatic. [facility] 09/06 16:28 Order name: Urine Dipstick-Ancillary; Complete Time: 17:12 [facility] 09/06 20:47 Order name: Manual Differential [facility] 09/06 21:13 Order name: SARS-COV-2 RT PCR [facility] 09/06 15:13 Order name: Labs collected and sent; Complete Time: 16:00 [facility] 09/06 15:13 Order name: O2 Per Protocol; Complete Time: 15:34 [facility] 09/06 15:13 Order name: O2 Sat Monitoring; Complete Time: 15:34 [facility] 09/06 15:13 Order name: Urine Dipstick-Ancillary (obtain specimen); Complete Time: 19:53 [facility] 09/06 16:02 Order name: Misc. Order: wet to dry [facility] EC:13 Rate is 56 beats/min. Rhythm is irregularly irregular. QRS [place] is Normal. TN interval divya is normal. QRS interval is normal. QT interval is normal. No Q waves. T waves are Normal. No ST changes noted. Clinical impression: Atrial Fibrillation and No evidence of ischemia. Interpreted by me. Reviewed by me. Administered Medications: 18:00 Drug: Meropenem 1 grams Route: IV; Rate: per protocol; Site: right antecubital; kg 18:40 Follow up: Response: No adverse reaction; Marked relief of symptoms; IV Status: kg Completed infusion; IV Intake: 100ml 18:00 Drug: Pepcid (famotidine) 20 mg Route: IVP; Site: right antecubital; kg 19:20 Follow up: Response: No adverse reaction kg 18:46 Drug: vancoMYCIN 1 grams Route: IVPB; Infused Over: 2 hrs; Site: right antecubital; kg 20:24 Drug: NS 0.9% 1000 ml Route: IV; Rate: 125 ml/hr; Site: right antecubital; ea Disposition Summary: 09/06/20 16:13 Hospitalization Ordered Hospitalization Status: Inpatient Admission divya Provider: Lopez Wagoner cha Location: Telemetry/MedSurg (Inpatient) divya Condition: Fair divya Problem: new divya Symptoms: are unchanged divya Bed/Room Type: Standard divya Room Assignment: 221(09/06/20 21:22) bb Diagnosis - Cellulitis and acute lymphangitis of other parts of limb - chronic ulcer right divya medial ankle - Venous insufficiency (chronic) (peripheral) divya - Type 2 diabetes mellitus with hyperglycemia divya - Obesity, unspecified divya - Unspecified atrial fibrillation divya - Acute kidney failure, unspecified divya - Unspecified combined systolic (congestive) and diastolic (congestive) heart failure divya - Elevated white blood cell count divya Forms: - Medication Reconciliation Form divya - SBAR form divya Signatures: Dispatcher [employer] EDZelalem Arce MD MD cha Ballard, Brenda, RN RN Ashwini Randolph RN RN ea Graham, Kristen, RN RN kg Corrections: (The following items were deleted from the chart) 16:13 divya bb
[2020-09-06 16:28] LABS: Urine Blood Negative (Negative); Urine Glucose Negative (Negative); Urine Protein 2+ (Negative); Urine Specific Gravity 1.015 (1.005-1.030); Urine pH 5.5 (5.0-7.0)
[2020-09-06 16:29] LABS: Albumin 3.5 g/dL (3.4-5.0); Bilirubin Total 2.4 mg/dL (0.2-1.0); Potassium 4.6 mmol/L (3.5-5.1); Protein, Total 8.8 g/dL (6.4-8.2); Troponin (Emerg Dept Use Only) 0.03 ng/mL (0.0-0.045)
--- NOTE | 2020-09-06 17:32 | P.HP ---
Certification for Inpatient With expected LOS: >2 Midnights Patient will require the following post-hospital care: None Practitioner: I am a practitioner with admitting privileges, knowledge of patient current condition, hospital course, and medical plan of care. Services: Services provided to patient in accordance with Admission requirements found in Title 42 Section 412.3 of the Code of Federal Regulations Patient History Date of Service: 09/06/20 Primary Care Provider: FRANCHESCA Desai Reason for admission: cellulitis History of Present Illness: This is a 70 y/o M with T2DM, hx of DVT, chronic stasis dermatitis who presents today with complaints of feeling unwell and his left lower leg feeling hot. He reports that he was in his normal state of health until this morning when he started feeling unwell. He felt light headed, chills, feverish. His wound care nurse saw him today and reported that his wound was hot to touch. He called Dr. Mojica's office and was recommended to come into ER. Denies any pain. WC 13.10 procal 3.73\ lactate 1.4 Allergies No Known Allergies Allergy (Verified 10/26/15 18:40) Home Medications: Furosemide [Lasix*] 40 mg PO BID #60 tab 08/27/15 carvediloL [Carvedilol] 3.125 mg PO BID #60 tablet 08/27/15 lisinopriL [Prinivil*] 5 mg PO DAILY #30 tab 08/27/15 Rivaroxaban [Xarelto] 20 mg PO DAILY AT SUPPER 05/16/20 Cefuroxime Axetil [Cefuroxime] 500 mg PO BID #14 tab 05/17/20 Codeine/APAP [Tylenol W/Codeine #3 tab] 1 tab PO Q6HP PRN #40 tab 05/17/20 - Past Medical/Surgical History Diabetic: Yes -: DM (diet controlled) -: HTN -: Blood clot superior vena cava -: chonic left lower ext. diabetic wounds Psychosocial/ Personal History: lives at home by himself - Family History Father -: Stroke Mother -: Other (see notes) Notes: blood clots - Social History Smoking Status: Never smoker Alcohol use: Yes CD- Drugs: Yes Caffeine use: Yes Physical Examination - Physical Exam General: Alert, Oriented x3, Cooperative HEENT: Atraumatic, Normocephalic, Mucous membr. moist/pink, EOMI Neck: Supple Respiratory: Clear to auscultation bilaterally, Normal air movement Cardiovascular: Regular rate/rhythm, Normal S1 S2 Capillary refill: <2 Seconds Gastrointestinal: Normal bowel sounds, Soft and benign, No tenderness, No guarding Integumentary: Tenderness/swelling (left lower leg and ankle), Erythema (induration), [place]th Neurological: Normal speech, Normal tone, Normal affect - Studies Laboratory Data (last 24 hrs) 09/06/20 15:45: PT 19.1 H, INR 1.65 09/06/20 15:45: WBC 13.10 H, Hgb 11.8 L, Hct 37.1 L, Plt Count 150 L 09/06/20 15:45: Sodium 132 L, Potassium 4.6, BUN 21 H, Creatinine 1.39 H, Glucose 103, Magnesium 2.0, Total Bilirubin 2.4 H, AST 36, ALT 26, Alkaline Phosphatase 122 H Assessment and Plan - Plan impression: acute on chronic cellulitis of left lateral leg secondary to venous insufficiency T2DM chronic afib plan: acute on chronic cellulitis of left lateral leg secondary to venous insufficiency: will admit patient for further evaluation and management. start empiric vanc and meropenem. WC 13.1, trend CBC. blood cultures pending. Dr. Mojica follows this patient regularly. Will consult Dr. Mojica and await recommendations. T2DM: accuchecs and SSI chronic afib: monitor on telemetry. obtain and restart home meds Discharge Plan: Home Plan to discharge in: 48 Hours - Advance Directives Does patient have a Living Will: No Does patient have a Durable POA for Healthcare: No - Code Status/Comfort Care Code Status Assessed: Yes Code Status: Full Code Time Spent Managing Pts Care (In Minutes): 55
[2020-09-06] MEDS ORDERED: VANCOMYCIN 1 GM/VIAL ONE (18:12)
[2020-09-06] MEDS ORDERED: Meropenem 1000 MG/VIAL IV ONE (18:12)
[2020-09-06] MEDS ORDERED: NA CHLORIDE 0.9% 1,000 ML ONE (18:13)
[2020-09-06] MEDS ORDERED: NA CHLORIDE 0.9% 250 ML ONE ×2 (18:13→23:59)
[2020-09-06] MEDS ORDERED: NA CHLORIDE 0.9% 100 ML ONE (18:13)
[2020-09-06] MEDS ORDERED: FAMOTIDINE 20 MG/2 ML VIAL IV ONE (18:29)
[2020-09-06 20:46] LABS: Anisocytosis 1+; Blood Morphology Comment NOTED (NOT SEEN); Hypochromasia 1+; Platelet Estimate ADEQ
[2020-09-06 22:35] VITALS: BMI 37.6
[2020-09-06] MEDS: INSULIN -REGULAR HUMAN 50 UNIT/0.5 ML ML SQ SCH (22:42)
[2020-09-06] MEDS ORDERED: ACETAMINOPHEN 500 MG TAB PO PRN (22:42)
[2020-09-06] MEDS ORDERED: ONDANSETRON 4 MG/2 ML VIAL IV PRN (22:42)
[2020-09-06] MEDS: NA CHLORIDE 0.9% 1,000 ML IV SCH (22:57)
[2020-09-06] MEDS ORDERED: VANCOMYCIN/NS 1 gm 1 GM/250 ML BAG IVPB ONE (23:15)
[2020-09-06 23:45] LABS: Urine Appearance CLEAR (Clear); Urine Bilirubin NEGATIVE (Negative); Urine Blood NEGATIVE (Negative); Urine Color YELLOW (Yellow); Urine Glucose NEGATIVE (Negative); Urine Protein 1+ (Negative); Urine pH 5.5 (5.0-7.0)
[2020-09-07] MEDS ORDERED: VANCOMYCIN 1 GM/VIAL ONE (00:01)
[2020-09-07 00:02] LABS: Urine Microscopic Reflex ORDER UMIC
[2020-09-07 01:05] LABS: Urine Bacteria <20 /HPF (NONE SEEN); Urine RBC NONE SEEN /HPF (NONE SEEN)
[2020-09-07] MEDS ORDERED: Meropenem 1 GM/100 ML BAG IV SCH (02:00)
[2020-09-07] MEDS ORDERED: Meropenem 1 GM/100 ML BAG ONE (02:42)
[2020-09-07 06:16] LABS: Absolute Lymphocytes (CBC) 0.7 K/uL (0.7-4.9); Basophils % 0.8 % (0-1.3); Hematocrit 33.3 % (39.6-49.0); Lymphocytes % 9.3 % (15.3-44.8); MPV 8.6 fL (7.6-11.3); RBC Red Blood Cell Count 4.13 M/uL (4.33-5.43)
[2020-09-07 06:25] LABS: Potassium 4.5 mmol/L (3.5-5.1)
[2020-09-07] MEDS: INSULIN -REGULAR HUMAN 50 UNIT/0.5 ML ML SQ SCH ×4 (07:30→21:00)
[2020-09-07] MEDS ORDERED: ENOXAPARIN 40 MG/0.4 ML SQ SCH (09:00)
[2020-09-07] MEDS: Meropenem 1 GM/100 ML BAG IV SCH ×2 (09:58→16:14)
--- NOTE | 2020-09-07 10:00 | P.PN ---
Subjective Date of Service: 09/07/20 Primary Care Provider: FRANCHESCA Desai Chief Complaint: cellulitis Subjective: Improving (overall feels better - more energy, lower leg/foot wound does not feel as warm to patient, still with swelling) Review of Systems 10-point ROS is otherwise unremarkable Physical Examination - Vital Signs Temperature: 96.3 F Blood Pressure: 156/70 Pulse: 54 Respirations: 18 Pulse Ox (%): 99 - Studies Laboratory Data (last 24 hrs) 09/06/20 15:45: PT 19.1 H, INR 1.65 09/06/20 15:45: WBC 13.10 H, Hgb 11.8 L, Hct 37.1 L, Plt Count 150 L 09/06/20 15:45: Sodium 132 L, Potassium 4.6, BUN 21 H, Creatinine 1.39 H, Glucose 103, Magnesium 2.0, Total Bilirubin 2.4 H, AST 36, ALT 26, Alkaline Phosphatase 122 H Assessment & Plan Physician Review Additional Text: Physical Exam General: Alert, Oriented x3 HEENT: normal conjunctiva, sclera anicteric Respiratory: Clear to auscultation bilaterally, Normal air movement Cardiovascular: irregularly irregular rhythm, 2+ edema bilaterally, L>R Gastrointestinal: soft, nontender, nondistended Integumentary: Tenderness/swelling of LLE/ankle area, erythema of lower leg, +Warmth Neurological: Normal speech, Normal affect Problem List Acute on chronic cellulitis of left lateral leg secondary to venous insufficiency T2DM, diet controlled chronic afib on xarelto HTN CKD3 -continue IV vanc & merrem for now, f/u wound and blood cultures -pt symptomatically improving -follows with Dr. Mojica in wound clinic, consulted -accucheks/SSI -telemetry -gentle IVF through today -renal function at baseline -confirm and restart home meds as appropriate VTE: lovenox 1mg/kg, transition back to home xarelto if no surgery needed/planned Code: full Dispo: anticipate dc home in ~48hrs, likely on PO antibiotics, pending cultures and improvement Time Spent Managing Pts Care (In Minutes): 40
--- NOTE | 2020-09-07 11:39 | CON ---
Date of Consultation: 09/07/2020 Reason: Wound, left leg with cellulitis. History Of Present Illness: The patient is a 70-year-old gentleman with multiple medical problems, w ho started having increasing pain, the leg feeling hot, associated fever and chills on Sunday night. Home health nurse went to his house and he did not look good and the [facility] was consulted and I was consulted and we advised the patient to go to the ER for IV antibiotics and evaluation. E ssentially had cellulitis and was admitted for IV antibiotics. I was consulted. He is awake, alert, feels better today than yesterday. Swelling and redness are getting better. No sore throat, runny nose, cough, headaches, or dizziness. No chest pain. Currently, no fever or chills. Review of Systems: Otherwise unremarkable. Past Medical History: Diabetes, hypertension, DVT, chronic left lower extremity diabetic wounds. Allergies: NONE. Social History: The patient does not smoke. Does drink alcohol. Has been counseled numerous times. Physical Examination: Vital Signs: Stable. He is currently afebrile. General: He is awake, alert, and oriented x3. Head and Neck: No masses. Chest: Clear. Heart: S1, S2. Abdomen: Soft. Extremities: Diminished dorsalis pedis and posterior tibial pulses. On the left medial ankle, there is a wound, approximately 7 x 4 x 0.2 cm wound with fibrin. No purulent discharge. Skin is very th ickened, but the redness is improving. The swelling is better. Assessment: Left leg wound with cellulitis. Recommendation: Wound care is ordered. IV antibiotics. Once we get the cultures back, the patient probably can be discharged on oral antibiotics and I can follow him up in the [facility]. Plan of care discussed in detail with the patient as well as Dr. Nunez. /MODL Voice ID: [id number] Report ID: [id number]
[2020-09-07] MEDS: FLUOCINONIDE 0.05% CREAM 30GM TOP SCH (12:07)
[2020-09-07] MEDS: SODIUM HYPOCHLORITE 0.25% 473 ML TOP SCH (12:07)
[2020-09-07] MEDS: COLLAGENASE 30 GM OINTMENT TOP SCH (12:07)
--- NOTE | 2020-09-07 16:10 | EKG ---
Test Date: 2020-09-06 Test Time: 20:23:59 Baggage And Mail Agent: ADRIANA MEASUREMENT RESULTS: Intervals: Rate: 51 ND: QRSD: 140 QT: 532 QTc: 490 [place]: P: ND: QRS: -44 T: 118 INTERPRETIVE STATEMENTS: Atrial fibrillation with slow ventricular response Left axis deviation Right bundle branch block T wave abnormality, consider lateral ischemia or digitalis effect Abnormal ECG Compared to ECG 09/06/2020 15:31:41 No significant changes Electronically Signed On 09-07-20 16:08:32 CDT by Bobby Banks
--- NOTE | 2020-09-07 16:11 | EKG ---
Test Date: 2020-09-06 Test Time: 15:31:41 Proposal Engineer: ROSS MEASUREMENT RESULTS: Intervals: Rate: 56 IN: QRSD: 148 QT: 504 QTc: 486 [place]: P: IN: QRS: -34 T: 105 INTERPRETIVE STATEMENTS: Atrial fibrillation with slow ventricular response Left axis deviation Right bundle branch block T wave abnormality, consider lateral ischemia or digitalis effect Abnormal ECG Compared to ECG 05/15/2020 13:49:48 No significant changes Electronically Signed On 09-07-20 16:08:43 CDT by Bobby Banks
[2020-09-07] MEDS: NA CHLORIDE 0.9% 1,000 ML IV SCH (16:14)
[2020-09-07] MEDS: VANCOMYCIN 2 GM in NA CHLORIDE 0.9% 500 ML IVPB SCH (17:29)
[2020-09-07] MEDS ORDERED: VANCOMYCIN/NS 1 gm 1 GM/250 ML BAG IVPB SCH (17:45)
[2020-09-07] MEDS ORDERED: ENOXAPARIN 100 MG/ML SYR SQ SCH (21:00)
[2020-09-08] MEDS: Meropenem 1 GM/100 ML BAG IV SCH ×3 (00:57→17:27)
[2020-09-08 04:50] LABS: Absolute Lymphocytes (CBC) 0.9 K/uL (0.7-4.9); Basophils % 0.8 % (0-1.3); Hematocrit 33.3 % (39.6-49.0); Lymphocytes % 14.2 % (15.3-44.8); MPV 8.8 fL (7.6-11.3); RBC Red Blood Cell Count 4.13 M/uL (4.33-5.43)
[2020-09-08 04:55] LABS: Magnesium 2.1 mg/dL (1.8-2.4); Potassium 4.1 mmol/L (3.5-5.1)
[2020-09-08] MEDS: INSULIN -REGULAR HUMAN 50 UNIT/0.5 ML ML SQ SCH ×4 (07:30→21:00)
[2020-09-08] MEDS: NA CHLORIDE 0.9% 1,000 ML IV SCH ×2 (08:29→14:42)
[2020-09-08] MEDS: COLLAGENASE 30 GM OINTMENT TOP SCH (08:30)
[2020-09-08] MEDS: SODIUM HYPOCHLORITE 0.25% 473 ML TOP SCH (08:30)
[2020-09-08] MEDS: FLUOCINONIDE 0.05% CREAM 30GM TOP SCH (08:30)
--- NOTE | 2020-09-08 09:10 | PN ---
Date of Progress Note: 09/08/2020 Subjective: The patient is awake and alert. No complaint. Vitals stable, afebrile. White count is normal. There is no left shift. Cultures are growing gram-positive cocci in pairs and chains. Sen sitivities not out yet. Leg shows decreased swelling, redness. Wound is unchanged. Assessment: Left leg wound with cellulitis. Recommendations: Continue IV antibiotics. Once we have culture and sensitivity, we can send the pat ient home on oral antibiotics appropriate for the patient and the patient can follow up with me in [facility] next week. Probably, the wound will need debridement. I will do that in the [facility]aling [facility]. Continue wound care per orders. /MODL Voice ID: [id number] Report ID: [id number]
--- NOTE | 2020-09-08 10:35 | P.PN ---
Subjective Date of Service: 09/08/20 Primary Care Provider: FRANCHESCA Desai Chief Complaint: cellulitis Subjective: Improving (feeling better, leg with less erythema, less swelling, wrapped in PALMA bandage to knee.) Review of Systems 10-point ROS is otherwise unremarkable Physical Examination - Vital Signs Temperature: 97.1 F Blood Pressure: 156/78 Pulse: 59 Respirations: 17 Pulse Ox (%): 95 Assessment & Plan Physician Review Additional Text: Physical Exam General: Alert, Oriented x3, NAD HEENT: normal conjunctiva, sclera anicteric Respiratory: Clear to auscultation bilaterally, Normal air movement Cardiovascular: irregularly irregular rhythm, 1+ edema bilaterally Gastrointestinal: soft, nontender, nondistended Integumentary: Tenderness/swelling of LLE/ankle area, mild erythema of lower leg Neurological: Normal speech, Normal affect Problem List Acute on chronic cellulitis of left lateral leg secondary to venous insufficiency T2DM, diet controlled chronic afib on xarelto HTN CKD3 -continue IV vanc & merrem for now, f/u wound and blood cultures -pt symptomatically improving -follows with Dr. Mojica in wound clinic, consulted -accucheks/SSI -no surgery planned, will transition back to home xarelto VTE: xarelto Code: full Dispo: anticipate dc home in next 24hrs, on PO antibiotics - pending final cultures Time Spent Managing Pts Care (In Minutes): 35
[2020-09-08] MEDS: VANCOMYCIN 2 GM in NA CHLORIDE 0.9% 500 ML IVPB SCH (12:00)
[2020-09-08] MEDS: lisinopriL 5 MG TAB PO SCH (14:58)
[2020-09-08] MEDS ORDERED: RIVAROXABAN 10 MG TABLET PO SCH (17:00)
[2020-09-08] MEDS ORDERED: RIVAROXABAN 20 MG TABLET PO SCH (17:00)
[2020-09-08 20:32] VITALS: O2SAT 96
[2020-09-08] MEDS: carvediloL 3.125 MG TAB PO SCH (21:00)
[2020-09-08] MEDS ORDERED: VANCOMYCIN 2 GM in NA CHLORIDE 0.9% 500 ML IVPB SCH (21:00)
[2020-09-09] MEDS: Meropenem 1 GM/100 ML BAG IV SCH ×2 (00:20→08:44)
[2020-09-09 05:49] LABS: Absolute Lymphocytes (CBC) 0.8 K/uL (0.7-4.9); Basophils % 1.3 % (0-1.3); Hematocrit 34.3 % (39.6-49.0); Lymphocytes % 16.2 % (15.3-44.8); RBC Red Blood Cell Count 4.24 M/uL (4.33-5.43)
[2020-09-09 06:11] LABS: Magnesium 2.2 mg/dL (1.8-2.4); Phosphorus 2.6 mg/dL (2.5-4.9); Potassium 4.3 mmol/L (3.5-5.1)
--- NOTE | 2020-09-09 06:55 | P.DS ---
Admission Date: 09/06/20 Discharge Date: 09/09/20 Primary Care Provider: FRANCHESCA Desai Disposition: ROUTINE DISCHARGE Discharge Condition: GOOD Reason for Admission: cellulitis Consultations: General Surgery - Dr. Mojica Procedures: CXR (09/06): FINDINGS: Portable technique limits examination quality. Mild pulmonary edema pattern is seen. The heart is moderately enlarged. No displaced fractures. IMPRESSION: Mild to moderate CHF. Problem List Acute cellulitis of chronic left lateral leg secondary to venous insufficiency T2DM, diet controlled chronic afib on xarelto chronic systolic CHF (HFrEF) Dilated cardiomyopathy HTN CKD3 Brief History of Present Illness: 70 y/o M with T2DM, hx of DVT, chronic stasis dermatitis who presents today with complaints of feeling unwell and his left lower leg feeling hot. He reports that he was in his normal state of health until this morning when he started feeling unwell. He felt light headed, chills, feverish. His wound care nurse saw him today and reported that his wound was hot to touch. He called Dr. Mojica's office and was recommended to come into ER. Denies any pain. Hospital Course: Patient was empirically treated with merrem and vanc for his cellulitis given his risk of MDR infection. Superficial wound and blood cultures were obtained. Wound culture grew resistant enterobacter cloacae which was felt to be a contaminant when reviewed with general surgery. On day of discharge he had significant improvement of his cellulitis and symptoms. He was discharged with ciprofloxacin and doxy. Follow up with Dr. Mojica in the wound clinic Vital Signs/Physical Exam: Physical Exam General: Alert, Oriented x3, NAD HEENT: normal conjunctiva, sclera anicteric Respiratory: Clear to auscultation bilaterally, Normal air movement Cardiovascular: irregularly irregular rhythm, trace-1+ edema bilaterally Gastrointestinal: soft, nontender, nondistended Integumentary: Tenderness/swelling of LLE/ankle area, mild erythema of lower leg Neurological: Normal speech, Normal affect Temp Pulse Resp BP Pulse Ox 97.9 F 48 L 18 122/56 L 95 09/09/20 00:00 09/09/20 00:00 09/09/20 00:00 09/09/20 00:00 09/09/20 00:00 Laboratory Data at Discharge: WBC 4.70 K/uL (4.3-10.9) D 09/09/20 05:28 Hgb 11.0 g/dL (13.6-17.9) L 09/09/20 05:28 Hct 34.3 % (39.6-49.0) L 09/09/20 05:28 Plt Count 144 K/uL (152-406) L 09/09/20 05:28 PT 19.1 SECONDS (9.5-12.5) H 09/06/20 15:45 INR 1.65 09/06/20 15:45 Sodium 139 mmol/L (136-145) 09/09/20 05:28 Potassium 4.3 mmol/L (3.5-5.1) 09/09/20 05:28 BUN 20 mg/dL (7-18) H 09/09/20 05:28 Creatinine 1.22 mg/dL (0.55-1.3) 09/09/20 05:28 Glucose 112 mg/dL (74-106) H 09/09/20 05:28 Phosphorus 2.6 mg/dL (2.5-4.9) 09/09/20 05:28 Magnesium 2.2 mg/dL (1.8-2.4) 09/09/20 05:28 Total Bilirubin 2.4 mg/dL (0.2-1.0) H 09/06/20 15:45 AST 36 U/L (15-37) 09/06/20 15:45 ALT 26 U/L (12-78) 09/06/20 15:45 Alkaline Phosphatase 122 U/L (45-117) H 09/06/20 15:45 Home Medications: carvediloL [Carvedilol] 3.125 mg PO BID #60 tablet 08/27/15 lisinopriL [Prinivil*] 5 mg PO DAILY #30 tab 08/27/15 Rivaroxaban [Xarelto] 20 mg PO DAILY AT SUPPER 05/16/20 Furosemide [Lasix*] 40 mg PO DAILY 09/07/20 Ciprofloxacin HCl [Cipro 500 MG Tablet] 500 mg PO BID 10 Days #20 tab 09/09/20 Doxycycline Hyclate 100 mg PO BID 10 Days #20 tablet 09/09/20 New Medications: Ciprofloxacin HCl [Cipro 500 MG Tablet] 500 mg PO BID 10 Days #20 tab Doxycycline Hyclate 100 mg PO BID 10 Days #20 tablet Physician Discharge Instructions: You were found to have cellulitis of your leg wound and improved with IV antibiotics. Wound culture grew enterobacter which is likely a contamination and not what caused the infection. You are discharged home with doxycycline and ciprofloxacin for 10 more days. Follow up with Dr. Mojica this coming week. Followup: Kvng Mojica MD [ACTIVE - CAN ADMIT] - 1 Week ([facility] in my clinic) Unknown,U [Primary Care Provider] - Time spent managing pt's care (in minutes): 40
[2020-09-09] MEDS: INSULIN -REGULAR HUMAN 50 UNIT/0.5 ML ML SQ SCH (07:30)
[2020-09-09] MEDS: lisinopriL 5 MG TAB PO SCH (08:42)
[2020-09-09] MEDS: NA CHLORIDE 0.9% 1,000 ML IV SCH (08:43)
[2020-09-09] MEDS: carvediloL 3.125 MG TAB PO SCH (08:43)
[2020-09-09] MEDS: SODIUM HYPOCHLORITE 0.25% 473 ML TOP SCH (08:44)
[2020-09-09] MEDS: FLUOCINONIDE 0.05% CREAM 30GM TOP SCH (08:44)
[2020-09-09 08:45] VITALS: BP 157/70
[2020-09-09] MEDS: COLLAGENASE 30 GM OINTMENT TOP SCH (08:45)
[2020-09-09 09:47] VITALS: TEMP 96.8
== END 2020-09-09 10:03 | disposition home health service (06) | DRG 603 ==
LOC: ER 14:33 → ERHOLD 17:03 → 2ND 21:41
PROVIDERS: ADMIT Internal Medicine; ATTEND Internal Medicine
DX: L03.116 Cellulitis of left lower limb (principal); I48.20 Chronic atrial fibrillation, unspecified; I13.0 Hypertensive heart and chronic kidney disease with heart failure and stage 1 through stage 4 chronic kidney disease, or unspecified chronic kidney disease; I50.22 Chronic systolic (congestive) heart failure; I42.0 Dilated cardiomyopathy; I87.2 Venous insufficiency (chronic) (peripheral); E11.22 Type 2 diabetes mellitus with diabetic chronic kidney disease; N18.30 Chronic kidney disease, stage 3 unspecified; Z79.01 Long term (current) use of anticoagulants; Z20.822 Contact with and (suspected) exposure to COVID-19
CPT/HCPCS: 36415; 71045; 80048; 80076; 80202; 81003; 81015; 82947; 83605; 83735; 83880; 84100; 84145; 84484; 85025; 85610; 87040; 87070; 87077; 87086; 87088; 87186; 87205; 93005; 96365; 96375; 99285; J1650; J2185; J3370; J3590; J7030; J7040; J7050; U0003

== ENCOUNTER 2020-12-24 10:09 | Inpatient (IN) | payer OTHER ==
[2020-12-24 10:51] LABS: Absolute Lymphocytes (CBC) 1.3 K/uL (0.7-4.9); Basophils % 0.6 % (0-1.3); Hematocrit 39.9 % (39.6-49.0); Lymphocytes % 9.4 % (15.3-44.8); RBC Red Blood Cell Count 4.59 M/uL (4.33-5.43)
[2020-12-24 11:02] LABS: Protime INR 3.09
[2020-12-24 11:13] LABS: ALT/SGPT 14 U/L (12-78); AST/SGOT 27 U/L (15-37); Albumin 3.3 g/dL (3.4-5.0); Alkaline Phosphatase 131 U/L (45-117); BUN Blood Urea Nitrogen 18 mg/dL (7-18); Bicarbonate 21 mmol/L (21-32); Bilirubin Direct 1.1 mg/dL (0-0.2); Bilirubin Total 2.4 mg/dL (0.2-1.0); Glucose Level 146 mg/dL (74-106); Lipase 154 U/L (73-393); Magnesium 2.1 mg/dL (1.8-2.4); NT PRO-BNP 7623 pg/mL (<125); Potassium 4.2 mmol/L (3.5-5.1); Protein, Total 9.4 g/dL (6.4-8.2); Sodium Level 135 mmol/L (136-145); Troponin (Emerg Dept Use Only) < 0.02 ng/mL (0.0-0.045)
--- NOTE | 2020-12-24 11:14 | RAD REPORT ---
EXAM DESCRIPTION: RAD - Chest Single View - 12/24/2020 10:46 am CLINICAL HISTORY: Chest pain;Dyspnea COMPARISON: Portable September 06 TECHNIQUE: AP portable chest image was obtained 12/24/2020 10:46 am . FINDINGS: Interstitial and patchy alveolar opacities are present. Chest findings are exaggerated by under penetrated technique, body habitus and portable imaging affects. . Cardiomegaly is present. Sma ll to moderate left-sided pleural effusion is present with small right pleural effusion. Trachea is i n midline peer no pneumothorax. No acute bony abnormality seen. No acute aortic findings suspected. IMPRESSION: CHF/volume overload pattern is evident with small right-side and small to moderate left- side pleural effusions.
[2020-12-24 11:27] LABS: Urine Blood Trace-intact (Negative); Urine Glucose Negative (Negative); Urine Protein 3+ (Negative); Urine Specific Gravity >=1.030 (1.005-1.030)
[2020-12-24] MEDS ORDERED: FUROSEMIDE 40 MG/4 ML VIAL ONE (11:30)
[2020-12-24] MEDS ORDERED: NITROGLYCERIN 1 GM PKT TD ONE (11:30)
--- NOTE | 2020-12-24 11:39 | EDPHYS ---
Physician Documentation [facility] – [place], [place] Name: Elijah Linares Age: 70 yrs Sex: Male : 1950 Arrival Date: 12/24/2020 Time: 10:10 Bed 20 Private MD: ED Physician Zelalem Romo HPI: 12/24 11:09 This 70 yrs old Male presents to ER via EMS with complaints of Breathing divya Difficulty. 11:09 The patient has shortness of breath at rest, with light activity. Onset: The divya symptoms/episode began/occurred this morning. Duration: The symptoms are continuous, and are steadily getting worse. The patient's shortness of breath is aggravated by exertion, light activity, supine position, walking. Associated signs and symptoms: Pertinent positives: non-productive cough. Severity of symptoms: At their worst the symptoms were moderate in the emergency department the symptoms are unchanged. The patient has not experienced similar symptoms in the past. Historical: - Allergies: 10:47 No Known Allergies; tc5 - Home Meds: 10:47 carvedilol Oral [Active]; Furosemide Oral [Active]; lisinopril Oral [Active]; Xarelto tc5 Oral [Active]; - PMHx: 10:47 Atrial fibrillation; blood clot inferior vena cava; Cellulitis; Diabetes - NIDDM; tc5 Diabetic ulcers; Hypertension; Myocardial infarction; - Immunization history:: Adult Immunizations up to date, Client reports receiving the Arnie \\T\\ Arnie single-dose vaccine. Last tetanus immunization: up to date. - Social history:: Smoking status: Patient denies any tobacco usage or history of. Patient uses alcohol, Used to drink every day, states he quit 1 year ago.. ROS: 11:34 Constitutional: Negative for fever, chills, and weight loss, Eyes: Negative for injury, divya pain, redness, and discharge, ENT: Negative for injury, pain, and discharge, Neck: Negative for injury, pain, and swelling, Cardiovascular: Negative for chest pain, palpitations, and edema, Abdomen/GI: Negative for abdominal pain, nausea, vomiting, diarrhea, and constipation, Back: Negative for injury and pain, : Negative for injury, bleeding, discharge, and swelling, Skin: Negative for injury, rash, and discoloration, Neuro: Negative for headache, weakness, numbness, tingling, and seizure, Psych: Negative for depression, anxiety, suicide ideation, homicidal ideation, and hallucinations, Allergy/Immunology: Negative for hives, rash, and allergies, Endocrine: Negative for neck swelling, polydipsia, polyuria, polyphagia, and marked weight changes, Hematologic/Lymphatic: Negative for swollen nodes, abnormal bleeding, and unusual bruising. 11:34 Respiratory: Positive for cough, "sounds productive", shortness of breath, at rest. 11:34 MS/extremity: Positive for decreased range of motion, pain, swelling, of the right leg and left leg. Exam: 11:34 Constitutional: This is a well developed, well nourished patient who is awake, alert, divya and in no acute distress. Head/Face: Normocephalic, atraumatic. Eyes: Pupils equal round and reactive to light, extra-ocular motions intact. Lids and lashes normal. Conjunctiva and sclera are non-icteric and not injected. Cornea within normal limits. Periorbital areas with no swelling, redness, or edema. ENT: Nares patent. No nasal discharge, no septal abnormalities noted. Tympanic membranes are normal and external auditory canals are clear. Oropharynx with no redness, swelling, or masses, exudates, or evidence of obstruction, uvula midline. Mucous membranes moist. Neck: Trachea midline, no thyromegaly or masses palpated, and no cervical lymphadenopathy. Supple, full range of motion without nuchal rigidity, or vertebral point tenderness. No Meningismus. Chest/axilla: Normal chest wall appearance and motion. Nontender with no deformity. No lesions are appreciated. Abdomen/GI: Soft, non-tender, with normal bowel sounds. No distension or tympany. No guarding or rebound. No evidence of tenderness throughout. Back: No spinal tenderness. No costovertebral tenderness. Full range of motion. Male : Normal genitalia with no discharge or lesions. Skin: Warm, dry with normal turgor. Normal color with no rashes, no lesions, and no evidence of cellulitis. MS/ Extremity: Pulses equal, no cyanosis. Neurovascular intact. Full, normal range of motion. Neuro: Awake and alert, GCS 15, oriented to person, place, time, and situation. Cranial nerves II-XII grossly intact. Motor strength 5/5 in all extremities. Sensory grossly intact. Cerebellar exam normal. Normal gait. Psych: Awake, alert, with orientation to person, place and time. Behavior, mood, and affect are within normal limits. 11:34 Cardiovascular: Rate: normal, actual rate is 71 bpm. 11:34 ECG was reviewed by the Attending Physician. Vital Signs: 10:42 BP 139 / 107; Pulse 95; Resp 40; Pulse Ox 95% ; Weight 121.11 kg; Height 5 ft. 11 in. tc5 (180.34 cm); Pain 0/10; 10:54 BP 138 / 112; Pulse 71; Resp 38; Temp 97.4; Pulse Ox 99% ; Weight 121.11 kg; Height 5 tc5 ft. 11 in. (180.34 cm); Pain 0/10; 13:00 BP 118 / 67; Pulse 43; Resp 28; Pulse Ox 99% ; Pain 0/10; tc5 14:00 BP 94 / 50; Pulse 63; Resp 18; Pulse Ox 100% ; Pain 0/10; tc5 15:00 BP 91 / 49; Pulse 56; Resp 24; Pulse Ox 100% ; Pain 0/10; tc5 10:54 Body Mass Index 37.24 (121.11 kg, 180.34 cm) tc5 MDM: 10:12 Patient medically screened. divya 11:35 Differential diagnosis: Anemia Anxiety Reaction asthma, Bronchitis CHF exacerbation, divya Chronic Obstructive Pulmonary Disease Pneumothorax pulmonary edema, Pulmonary Embolism reactive airway disease, Sepsis Unstable Angina. Antibiotic administration: Levaquin given. The patient's Wells Deep Vein Thrombosis Score was calculated as follows: Imm/Surg in last 4 wks (1.5 Pts) Total Score: 0-2 Pts- Low Risk. The patient's pulmonary embolism risk score was calculated as follows: Total Score: 0-2 points. This patient was found to be at low risk for a pulmonary embolism by using the Well's assessment criteria. Immunization status: Pneumococcal vaccine: Influenza vaccine: Data reviewed: vital signs, nurses notes, lab test result(s), EKG, radiologic studies, plain films. Data interpreted: alarm security or surveillance monitor: rate is 71 beats/min, rhythm is atrial fibrillation, Pulse oximetry: on room air is 99 %. Test interpretation: by ED physician or midlevel provider: ECG, plain radiologic studies. Counseling: I had a detailed discussion with the patient and/or guardian regarding: the historical points, exam findings, and any diagnostic results supporting the discharge/admit diagnosis, lab results, radiology results, the need for further work-up and treatment in the hospital. 12/24 10:16 Order name: Basic Metabolic Panel [facility] 12/24 10:16 Order name: CBC with Diff [facility] 12/24 10:16 Order name: LFT's [facility] 12/24 10:16 Order name: Magnesium [facility] 12/24 10:16 Order name: NT PRO-BNP [facility] 12/24 10:16 Order name: PT-INR [facility] 12/24 10:16 Order name: Troponin (emerg Dept Use Only); Complete Time: 11:32 [facility] 12/24 10:16 Order name: Lipase; Complete Time: 11:32 [facility] 12/24 10:16 Order name: Lactate; Complete Time: 11:32 [facility] 12/24 10:16 Order name: Blood Culture Adult (2) [facility] 12/24 10:16 Order name: Flu; Complete Time: 12:43 [facility] 12/24 10:16 Order name: D-Dimer; Complete Time: 11:09 [facility] 12/24 10:17 Order name: Basic Metabolic Panel; Complete Time: 11:32 [facility] 12/24 10:16 Order name: XRAY Chest (1 view); Complete Time: 11:32 [facility] 12/24 10:17 Order name: CBC with Automated Diff; Complete Time: 11:09 [facility] 12/24 10:17 Order name: Liver (Hepatic) Function; Complete Time: 11:32 [facility] 12/24 10:17 Order name: Magnesium; Complete Time: 11:32 [facility] 12/24 10:17 Order name: NT PRO-BNP; Complete Time: 11:32 [facility] 12/24 10:17 Order name: Protime (+INR); Complete Time: 11:09 [facility] 12/24 11:05 Order name: BIPAP [facility] 12/24 11:06 Order name: US Extremity Venous W Compression [place] [facility] 12/24 11:27 Order name: Urine Dipstick-Ancillary; Complete Time: 11:32 [facility] 12/24 11:39 Order name: SARS-COV-2 RT PCR [facility] 12/24 15:11 Order name: Troponin I [facility] 12/24 15:11 Order name: Echo with Doppler [facility] 12/24 15:20 Order name: Echo w/ Doppler [facility] 12/24 10:16 Order name: EKG; Complete Time: 10:18 [facility] 12/24 10:16 Order name: Cardiac monitoring; Complete Time: 10:41 [facility] 12/24 10:16 Order name: EKG - Nurse/Tech; Complete Time: 15:40 [facility] 12/24 10:16 Order name: IV Saline Lock; Complete Time: 10:41 [facility] 12/24 10:16 Order name: Labs collected and sent; Complete Time: 10:41 [facility] 12/24 10:16 Order name: O2 Per Protocol; Complete Time: 10:41 [facility] 12/24 10:16 Order name: O2 Sat Monitoring; Complete Time: 10:41 [facility] 12/24 10:16 Order name: Urine Dipstick-Ancillary (obtain specimen); Complete Time: 11:27 [facility] 12/24 10:56 Order name: [facility]: VISC LIDO; Complete Time: 11:22 [facility] 12/24 15:11 Order name: CONS Physician Consult EDMS 12/24 15:11 Order name: Heart Healthy EDMS EC:34 Rate is 75 beats/min. Rhythm is irregularly irregular. QRS [place] is Normal. [place] interval divya is normal. QRS interval is normal. QT interval is normal. No Q waves. T waves are Normal. No ST changes noted. Clinical impression: Atrial Fibrillation and No evidence of ischemia. Interpreted by me. Reviewed by me. Administered Medications: 10:55 CANCELLED (Duplicate Order): NS 0.9% 1000 ml IV at 125 ml/hr continuous divya 11:18 Drug: Nitro-Bid (nitroglycerin) Ointment 2 % 1 inches Route: Transdermal; Site: tc5 anterior chest wall; 14:00 Follow up: Response: Blood pressure is lowered tc5 11:18 Drug: Lasix (furosemide) 60 mg Route: IVP; Site: left antecubital; tc5 15:40 Follow up: Response: No adverse reaction tc5 11:34 Drug: Pepcid (famotidine) 20 mg Route: IVP; Site: left antecubital; tc5 15:39 Follow up: Response: No adverse reaction tc5 12:15 Drug: levofloxacin 500 mg Volume: 100 ml; Route: IVPB; Infused Over: 60 mins; Site: tc5 left antecubital; 15:38 Follow up: IV Status: Completed infusion; IV Intake: 100ml tc5 Disposition Summary: 12/24/20 11:39 Hospitalization Ordered Hospitalization Status: Inpatient Admission divya Provider: Noemi Mendes cha Location: Telemetry/MedSurg (Inpatient) divya Condition: Fair divya Problem: new divya Symptoms: have improved divya Bed/Room Type: Standard divya Room Assignment: 427(12/24/20 15:34) dw Diagnosis - Dyspnea divya - Hypoxemia divya - Chronic atrial fibrillation divya - Systolic (congestive) heart failure dviya - Unspecified kidney failure - CHRONIC divya - Elevated white blood cell count divya - Essential (primary) hypertension divya - Pleural effusion, not elsewhere classified - bilateral divya Forms: - Medication Reconciliation Form divya - SBAR form divya Signatures: Dispatcher [employer] EDMS Faby Hung RN RN dw Anderson, Corey, MD MD cha Cassaboom, Theresa RN RN tc5 Corrections: (The following items were deleted from the chart) 10:55 10:16 NS 0.9% 1000 ml IV at 125 ml/hr continuous ordered. divya divya 11:38 10:17 CORONAVIRUS+MR.LAB.BRZ ordered. EDDE EDDE 15:34 11:39 divya dw
--- NOTE | 2020-12-24 11:39 | ER ---
Nurse's Notes [facility] Name: Elijah Linares Age: 70 yrs Sex: Male : 1950 Arrival Date: 12/24/2020 Time: 10:10 Bed 20 Private MD: Diagnosis: Dyspnea;Hypoxemia;Chronic atrial fibrillation;Systolic (congestive) heart failure;Unspecified kidney failure-CHRONIC;Elevated white blood cell count;Essential (primary) hypertension;Pleural effusion, not elsewhere classified-bilateral Presentation: 12/24 10:42 Chief complaint: Patient states: SOB started this am. Coronavirus screen: Vaccine tc5 status: Patient reports receiving the 1st dose of the Covid vaccine. J/J one shot. Ebola Screen: No symptoms or risks identified at this time. Initial Sepsis Screen: Does the patient meet any 2 criteria? RR > 20 per min. HR > 90 bpm. Yes. 10:42 Method Of Arrival: EMS tc5 11:00 Acuity: NADIYA 2 tc5 15:47 Risk Assessment: Do you want to hurt yourself or someone else? Patient reports no tc5 desire to harm self or others. 15:47 Onset of symptoms was December 24, 2020 at 06:00. tc5 Triage Assessment: 10:50 General: Appears distressed, Behavior is cooperative, resp distress, Hands cyonotic, tc5 let pt get settle sitting on the edge of [facility] while i applied monitors, increased 02 to 6 LPM NC until respirations eased a little. made aware of pt resp status and the pt states he has too much fluid on his heart and lungs, . Pain: Denies pain. Respiratory: Respiratory effort is labored, gasping, using tripod position, Respiratory pattern is symmetrical, hyperventilation Onset: The symptoms/episode began/occurred this morning, the patient has severe shortness of breath. 15:49 Respiratory: Reports shortness of breath at rest on exertion since the am. tc5 Historical: - Allergies: 10:47 No Known Allergies; tc5 - Home Meds: 10:47 carvedilol Oral [Active]; Furosemide Oral [Active]; lisinopril Oral [Active]; Xarelto tc5 Oral [Active]; - PMHx: 10:47 Atrial fibrillation; blood clot inferior vena cava; Cellulitis; Diabetes - NIDDM; tc5 Diabetic ulcers; Hypertension; Myocardial infarction; - Immunization history:: Adult Immunizations up to date, Client reports receiving the Arnie \T\ Arnie single-dose vaccine. Last tetanus immunization: up to date. - Social history:: Smoking status: Patient denies any tobacco usage or history of. Patient uses alcohol, Used to drink every day, states he quit 1 year ago.. Screenin:56 Abuse screen: Denies threats or abuse. Denies injuries from another. Nutritional tc5 screening: No deficits noted. Tuberculosis screening: No symptoms or risk factors identified. Fall Risk Ambulatory Aid- Gait- Weak (10 pts.). Assessment: 10:55 Reassessment: No changes from previously documented assessment. General: See triage.. tc5 Cardiovascular: Reports shortness of breath. Respiratory: Airway is patent Respiratory effort is labored, gasping, using tripod position, Respiratory pattern is regular, hyperventilation Sputum is Breath sounds with wheezes bilaterally. Exp wheeze. 14:55 Reassessment: Pt resting, tolerating bipap well, RT just rounded, addressed any needs. tc5 14:56 Reassessment: pt VS improving. pt resting. tc5 15:42 Reassessment: pt hypotensive, removed NTG top. . tc5 15:43 Cardiovascular: Rhythm is sinus bradycardia. tc5 Vital Signs: 10:42 BP 139 / 107; Pulse 95; Resp 40; Pulse Ox 95% ; Weight 121.11 kg; Height 5 ft. 11 in. tc5 (180.34 cm); Pain 0/10; 10:54 BP 138 / 112; Pulse 71; Resp 38; Temp 97.4; Pulse Ox 99% ; Weight 121.11 kg; Height 5 tc5 ft. 11 in. (180.34 cm); Pain 0/10; 13:00 BP 118 / 67; Pulse 43; Resp 28; Pulse Ox 99% ; Pain 0/10; tc5 14:00 BP 94 / 50; Pulse 63; Resp 18; Pulse Ox 100% ; Pain 0/10; tc5 15:00 BP 91 / 49; Pulse 56; Resp 24; Pulse Ox 100% ; Pain 0/10; tc5 10:54 Body Mass Index 37.24 (121.11 kg, 180.34 cm) tc5 ED Course: 10:10 Patient arrived in ED. ds1 10:12 Zelalem Romo MD is Attending Physician. divya 10:19 Lisa Mcgrath, RN is Primary Nurse. tc5 10:42 PT-INR Sent. tc5 10:42 NT PRO-BNP Sent. tc5 10:42 Magnesium Sent. tc5 10:42 LFT's Sent. tc5 10:42 CBC with Diff Sent. tc5 10:42 Basic Metabolic Panel Sent. tc5 10:46 XRAY Chest (1 view) In Process Unspecified. EDMS 10:56 Patient has correct armband on for positive identification. Bed in low position. Call tc5 light in reach. Side rails up X 1. 10:57 Inserted saline lock: 20 gauge in left antecubital area, using aseptic technique. Blood tc5 collected. 11:00 Triage completed. tc5 11:27 Duke cath inserted, using sterile technique, 16 Fr., by al, balloon inflated, to mt gravity drainage, urine specimen collected. returned garrison urine. Patient tolerated well. 11:37 Noemi Mendes MD is Hospitalizing Provider. [facility] 11:56 Flu Sent. [facility] 11:56 Blood Culture Adult (2) Sent. 5 11:57 BIPAP Sent. 5 13:01 US Extremity Venous W Compression Kodi In Process Unspecified. EDMS 14:08 Warm blanket given. Pillow given. Elevated Turned to left side. moved up in bed. 5 15:43 No provider procedures requiring assistance completed. tc5 Administered Medications: 10:55 CANCELLED (Duplicate Order): NS 0.9% 1000 ml IV at 125 ml/hr continuous divya 11:18 Drug: Nitro-Bid (nitroglycerin) Ointment 2 % 1 inches Route: Transdermal; Site: tc5 anterior chest wall; 14:00 Follow up: Response: Blood pressure is lowered tc5 11:18 Drug: Lasix (furosemide) 60 mg Route: IVP; Site: left antecubital; tc5 15:40 Follow up: Response: No adverse reaction [facility] 11:34 Drug: Pepcid (famotidine) 20 mg Route: IVP; Site: left antecubital; tc5 15:39 Follow up: Response: No adverse reaction tc5 12:15 Drug: levofloxacin 500 mg Volume: 100 ml; Route: IVPB; Infused Over: 60 mins; Site: tc5 left antecubital; 15:38 Follow up: IV Status: Completed infusion; IV Intake: 100ml tc5 Intake: 15:38 IV: 100ml; Total: 100ml. tc5 Outcome: 11:39 Decision to Hospitalize by Provider. divya 15:44 Admitted to Med/surg tc5 15:44 Condition: improved 17:03 Patient left the ED. tc5 Signatures: Dispatcher [employer] EDZelalem Arce MD MD cha Sanford, Demi ds1 Martinez, Maria Reyna Cardoza mt, Theresa, RN RN tc5 Corrections: (The following items were deleted from the chart) 15:09 14:58 BP 119 / 79; Pulse 113bpm; Resp 30bpm; Pulse Ox 99%; Pain 0/10; tc5 tc5 15:09 13:00 BP 115 / 78; Pulse 94bpm; Resp 28bpm; Pulse Ox 99%; tc5 tc5 15:09 14:00 BP 99 / 59; Pulse 106bpm; Pulse Ox 99%; Pain 0/10; tc5 tc5
[2020-12-24] MEDS ORDERED: FAMOTIDINE 20 MG/2 ML VIAL IV ONE (11:58)
[2020-12-24] MEDS ORDERED: Levofloxacin500mg IV 500 MG/100 ML BAG IV ONE (12:36)
--- NOTE | 2020-12-24 13:32 | RAD REPORT ---
EXAM DESCRIPTION: US - Extrem Venous W Compress Kodi - 12/24/2020 1:02 pm CLINICAL HISTORY: Pain;Swelling Bilateral leg edema and swelling. COMPARISON: EXT VENOUS W COMPRESSION KODI dated 03/25/2013 TECHNIQUE: Real-time sonographic interrogation of the left and right lower extremity deep venous sys tems was performed. FINDINGS: Exam was limited by body habitus and clinical condition of the patient. Normal compressibi lity, flow augmentation, phasic flow and spontaneous flow is identified in the majority of the left a nd right lower extremity deep venous systems. IMPRESSION: No gross sonographic evidence of left or right lower extremity deep venous thrombosis.
[2020-12-24] MEDS ORDERED: ONDANSETRON 4 MG/2 ML VIAL IV PRN (15:07)
[2020-12-24] MEDS ORDERED: ACETAMINOPHEN 500 MG TAB PO PRN (15:07)
[2020-12-24] MEDS ORDERED: ENOXAPARIN 40 MG/0.4 ML SQ SCH (16:00)
[2020-12-24] MEDS: NACHLORIDE 0.45% 1,000 ML IV SCH (16:00)
[2020-12-24] MEDS: FUROSEMIDE 20 MG/ 2ML VIAL IV SCH (17:52)
[2020-12-24 18:29] VITALS: BMI 37.2
[2020-12-24] MEDS ORDERED: INFLUENZA VACCINE (for 6+ mo) 0.5 ML DOSE IMVAC ONE (20:00)
[2020-12-24] MEDS ORDERED: PNEUMOCOCCAL VACCINE 0.5 ML IMVAC ONE (20:00)
[2020-12-24] MEDS: IPRATROPIUM BROM 0.5MG/2.5ML NEB PRN (21:28)
[2020-12-24] MEDS: ALBUTEROL 2.5 MG/3 ML NEB SOL NEB PRN (21:28)
[2020-12-25] MEDS: MUCINEX DM 12HR.SR TAB PO PRN (01:00)
[2020-12-25] MEDS: FUROSEMIDE 20 MG/ 2ML VIAL IV SCH ×3 (01:47→20:53)
[2020-12-25] MEDS ORDERED: LORAZEPAM 0.5 MG TABLET PO ONE (04:29)
[2020-12-25] MEDS: NACHLORIDE 0.45% 1,000 ML IV SCH ×2 (05:20→17:13)
[2020-12-25 05:40] LABS: Absolute Lymphocytes (CBC) 0.8 K/uL (0.7-4.9); Basophils % 0.6 % (0-1.3); Hematocrit 35.3 % (39.6-49.0); MPV 8.6 fL (7.6-11.3); RBC Red Blood Cell Count 4.13 M/uL (4.33-5.43)
[2020-12-25 06:21] LABS: Albumin 2.9 g/dL (3.4-5.0); Bilirubin Total 1.8 mg/dL (0.2-1.0); Phosphorus 3.2 mg/dL (2.5-4.9); Potassium 3.8 mmol/L (3.5-5.1); Protein, Total 8.2 g/dL (6.4-8.2); Troponin I 0.02 ng/mL (0.0-0.045)
[2020-12-25 06:22] LABS: Magnesium 2.1 mg/dL (1.8-2.4)
[2020-12-25] MEDS: VALSARTAN 80 MG TAB PO SCH (08:50)
[2020-12-25] MEDS: POTASSIUM 25 MEQ EFFERV TAB PO SCH (08:50)
[2020-12-25] MEDS: ALBUTEROL 2.5 MG/3 ML NEB SOL NEB PRN ×3 (08:54→14:15)
[2020-12-25] MEDS: IPRATROPIUM BROM 0.5MG/2.5ML NEB PRN ×3 (08:54→14:15)
[2020-12-25] MEDS ORDERED: CLOPIDOGREL 75 MG TABLET PO SCH (09:00)
[2020-12-25] MEDS ORDERED: ASPIRIN EC 81 MG TAB PO SCH (09:00)
[2020-12-25] MEDS ORDERED: lisinopriL 5 MG TAB PO SCH (09:00)
[2020-12-25] MEDS ORDERED: carvediloL 3.125 MG TAB PO SCH (09:00)
--- NOTE | 2020-12-25 09:36 | P.HP ---
Certification for Inpatient Patient admitted to: Inpatient With expected LOS: >2 Midnights Patient will require the following post-hospital care: None Practitioner: I am a practitioner with admitting privileges, knowledge of patient current condition, hospital course, and medical plan of care. Services: Services provided to patient in accordance with Admission requirements found in Title 42 Section 412.3 of the Code of Federal Regulations Patient History Date of Service: 12/24/20 Reason for admission: Acute CHF exacerbation History of Present Illness: Patient is a 70-year-old gentleman with a history of congestive heart failure presents to the emergency room with shortness of breath. Patient also has history of hypertension diabetes. He presents to the emergency room with difficulty breathing and he was hypoxic with oxygen saturations in the mid 80s. She was tachypneic and he was worked up in the emergency room with chest x-ray and lab workup. His BNP came back at greater than 7000 in his chest x-ray revealed bilateral pulmonary edema with bilateral pleural effusions. He had a left-sided pleural effusion which was moderate in size on the chest x-ray. Patient was initially placed on BiPAP but was able to get weaned down to nasal cannula. She is clinically doing better at this time. Will admit him to the hospital with continued diuresis. Will try get a stat echocardiogram and will get Cardiology consultation as well. Patient will be admitted to the hospital for inpatient hospitalization. Allergies No Known Allergies Allergy (Verified 09/07/20 00:02) Home Medications: carvediloL [Carvedilol] 3.125 mg PO BID #60 tablet 08/27/15 lisinopriL [Prinivil*] 5 mg PO DAILY #30 tab 08/27/15 Rivaroxaban [Xarelto] 20 mg PO DAILY AT SUPPER 05/16/20 - Past Medical/Surgical History Has patient received pneumonia vaccine in the past: No Diabetic: Yes -: DM (diet controlled) -: HTN -: Blood clot superior vena cava -: chonic left lower ext. diabetic wounds -: hand sx -: leg sx Psychosocial/ Personal History: lives at home by himself - Family History Father History Unknown: Yes Medical History: Stroke Mother History Unknown: Yes Medical History: Blood disorders, Other (see notes) Notes: blood clots - Social History Smoking Status: Never smoker Alcohol use: Yes CD- Drugs: No Caffeine use: Yes Place of Residence: Home Review of Systems 10-point ROS is otherwise unremarkable Physical Examination - Vital Signs Temperature: 96.9 F Blood Pressure: 105/52 Pulse: 53 Respirations: 18 Pulse Ox (%): 98 - Physical Exam General: Alert, In no apparent distress, Oriented x3 HEENT: Atraumatic, PERRLA, Mucous membr. moist/pink, EOMI, Sclerae nonicteric Neck: Supple, 2+ carotid pulse no bruit, No LAD, Without JVD or thyroid abnormality Respiratory: Diminished, Crackles/rales Cardiovascular: Regular rate/rhythm, Normal S1 S2, No murmurs Gastrointestinal: Normal bowel sounds, Soft and benign, Non-distended, No tenderness Musculoskeletal: No clubbing, No tenderness, Swelling Integumentary: No rashes Neurological: Normal speech, Normal tone, Sensation intact, Cranial nerves 3-12 intact, Normal affect, Abnormal gait, Abnormal strength Lymphatics: No axilla or inguinal lymphadenopathy - Studies Laboratory Data (last 24 hrs) 12/24/20 10:35: PT 35.9 H, INR 3.09 12/24/20 10:35: WBC 13.70 H, Hgb 12.7 L, Hct 39.9, Plt Count 168 12/24/20 10:35: Sodium 135 L, Potassium 4.2, BUN 18, Creatinine 1.50 H, Glucose 146 H, Magnesium 2.1, Total Bilirubin 2.4 H, AST 27, ALT 14, Alkaline Phosphatase 131 H, Lipase 154 Microbiology Data (last 24 hrs): 12/24/20 10:30 Nasopharnyx Influenza Type A Antigen Screen - Final 12/24/20 10:30 Nasopharnyx Influenza Type B Antigen Screen - Final Assessment & Plan - Problems (Diagnosis) (1) CHF (congestive heart failure) Onset Date: 08/25/15 Current Visit: No Status: Acute Qualifiers: Heart failure type: combined systolic and diastolic (2) CKD (chronic kidney disease), stage III Current Visit: No Status: Acute (3) Paroxysmal atrial fibrillation Onset Date: 10/27/15 Current Visit: No Status: Acute (4) Chronic venous hypertension w/ulcer and inflammation involv left side Current Visit: No Status: Chronic (5) Diabetes mellitus Onset Date: 08/25/15 Current Visit: No Status: Chronic (6) Hyperlipidemia Onset Date: 10/27/15 Current Visit: No Status: Chronic Qualifiers: (7) Lymphedema Current Visit: No Status: Chronic (8) Obesity Onset Date: 05/21/17 Current Visit: No Status: Chronic (9) Stasis dermatitis of lower extremity due to peripheral venous hypertension Current Visit: No Status: Chronic - Plan 1. Echocardiogram 2. [facility] catheter placement; wound care to lower extremities for his lymphedema and venous stasis dermatitis 3. Resume beta-milvia therapy in 24-48 hrs 4. Cardiology consultation pending 5. Aggressive diuresis 6. Strict I's and O's 7. Repeat CXR in the morning 8. Daily weights 9. monitor on telemetry and resume his medications for his atrial fibrillation along with anticoagulation 10. Strict blood pressure and blood sugar control 11. Education regarding diet and treatment of congestive heart failure Discharge Plan: Home Plan to discharge in: Greater than 2 days - Advance Directives Does patient have a Living Will: No Does patient have a Durable POA for Healthcare: No - Code Status/Comfort Care Code Status Assessed: Yes Code Status: Full Code Critical Care: No Time Spent Managing PTS Care (In Minutes): 45
[2020-12-25] MEDS ORDERED: ALBUMIN HUMAN 25% 50 ML IV ONE (12:49)
[2020-12-25] MEDS: RIVAROXABAN 20 MG TABLET PO SCH (16:49)
[2020-12-26] MEDS: VALSARTAN 80 MG TAB PO SCH (09:00)
[2020-12-26] MEDS: POTASSIUM 25 MEQ EFFERV TAB PO SCH (09:47)
[2020-12-26] MEDS: FUROSEMIDE 20 MG/ 2ML VIAL IV SCH (09:48)
--- NOTE | 2020-12-26 12:05 | P.PN ---
Date of Service: 12/26/20 Subjective Review of Systems 10-point ROS is otherwise unremarkable Physical Examination - Vital Signs Reviewed - Physical Exam General: Alert, In no apparent distress, Oriented x3 Respiratory: Crackles/rales Cardiovascular: Normal pulses, Regular rate/rhythm, Normal S1 S2 Gastrointestinal: Normal bowel sounds, Soft and benign, Non-distended Musculoskeletal: No clubbing, Swelling Integumentary: Other (Hyperkeratosis of the lower extremities) Assessment & Plan - Problems (Diagnosis) (1) CHF (congestive heart failure) Onset Date: 08/25/15 Current Visit: No Status: Acute Qualifiers: Heart failure type: combined systolic and diastolic (2) CKD (chronic kidney disease), stage III Current Visit: No Status: Acute (3) Paroxysmal atrial fibrillation Onset Date: 10/27/15 Current Visit: No Status: Acute (4) Chronic venous hypertension w/ulcer and inflammation involv left side Current Visit: No Status: Chronic (5) Diabetes mellitus Onset Date: 08/25/15 Current Visit: No Status: Chronic (6) Hyperlipidemia Onset Date: 10/27/15 Current Visit: No Status: Chronic Qualifiers: (7) Lymphedema Current Visit: No Status: Chronic (8) Obesity Onset Date: 05/21/17 Current Visit: No Status: Chronic (9) Stasis dermatitis of lower extremity due to peripheral venous hypertension Current Visit: No Status: Chronic - Plan Continue with plan of care as mentioned below: 1. Echocardiogram pending 2. Discontinue Duke catheter 3. Continue carvedilol 4. Cardiology consultation pending 5. Aggressive diuresis 6. Strict I's and O's 7. Will repeat chest x-ray 8. Daily weights 9. monitor on telemetry and resume his medications for his atrial fibrillation along with anticoagulation 10. Strict blood pressure and blood sugar control 11. Education regarding diet and treatment of congestive heart failure - Advance Directives Does patient have a Living Will: No Does patient have a Durable POA for Healthcare: No - Code Status/Comfort Care Code Status: Full Code
--- NOTE | 2020-12-26 12:05 | P.PN ---
Subjective Date of Service: 12/25/20 Patient is clinically feeling better. Patient denies any new complaints. Clinical symptoms continued to improve. Lower extremity edema improved as well. Review of Systems 10-point ROS is otherwise unremarkable Physical Examination - Vital Signs Temperature: 97.2 F Blood Pressure: 125/54 Pulse: 48 Respirations: 18 Pulse Ox (%): 98 - Physical Exam General: Alert, In no apparent distress, Oriented x3 Respiratory: Crackles/rales Cardiovascular: Normal pulses, Regular rate/rhythm, Normal S1 S2 Gastrointestinal: Normal bowel sounds, Soft and benign, Non-distended Musculoskeletal: No clubbing, Swelling Integumentary: Other (Hyperkeratosis of the lower extremities) Assessment & Plan - Problems (Diagnosis) (1) CHF (congestive heart failure) Onset Date: 08/25/15 Current Visit: No Status: Acute Qualifiers: Heart failure type: combined systolic and diastolic (2) CKD (chronic kidney disease), stage III Current Visit: No Status: Acute (3) Paroxysmal atrial fibrillation Onset Date: 10/27/15 Current Visit: No Status: Acute (4) Chronic venous hypertension w/ulcer and inflammation involv left side Current Visit: No Status: Chronic (5) Diabetes mellitus Onset Date: 08/25/15 Current Visit: No Status: Chronic (6) Hyperlipidemia Onset Date: 10/27/15 Current Visit: No Status: Chronic Qualifiers: (7) Lymphedema Current Visit: No Status: Chronic (8) Obesity Onset Date: 05/21/17 Current Visit: No Status: Chronic (9) Stasis dermatitis of lower extremity due to peripheral venous hypertension Current Visit: No Status: Chronic - Plan 1. Echocardiogram pending 2. Discontinue [facility] catheter 3. Continue carvedilol 4. Cardiology consultation pending 5. Aggressive diuresis 6. Strict I's and O's 7. Will repeat chest x-ray 8. Daily weights 9. monitor on telemetry and resume his medications for his atrial fibrillation along with anticoagulation 10. Strict blood pressure and blood sugar control 11. Education regarding diet and treatment of congestive heart failure - Advance Directives Does patient have a Living Will: No Does patient have a Durable POA for Healthcare: No - Code Status/Comfort Care Code Status: Full Code
[2020-12-26] MEDS: FUROSEMIDE 40 MG TABLET PO SCH (16:39)
[2020-12-26] MEDS: RIVAROXABAN 20 MG TABLET PO SCH (16:40)
[2020-12-27] MEDS: MUCINEX DM 12HR.SR TAB PO PRN (01:26)
[2020-12-27 07:10] LABS: Basophils % 1.2 % (0-1.3); Hematocrit 35.8 % (39.6-49.0); Lymphocytes % 17.2 % (15.3-44.8); MPV 8.7 fL (7.6-11.3); RBC Red Blood Cell Count 4.22 M/uL (4.33-5.43)
[2020-12-27 07:15] LABS: Magnesium 2.3 mg/dL (1.8-2.4); Potassium 3.9 mmol/L (3.5-5.1)
[2020-12-27] MEDS: POTASSIUM 25 MEQ EFFERV TAB PO SCH (08:07)
[2020-12-27] MEDS: FUROSEMIDE 40 MG TABLET PO SCH ×2 (08:08→17:50)
[2020-12-27] MEDS: VALSARTAN 80 MG TAB PO SCH (08:08)
--- NOTE | 2020-12-27 08:50 | RAD REPORT ---
EXAM DESCRIPTION: RAD - Chest Single View - 12/27/2020 5:12 am CLINICAL HISTORY: pneumonia Chest pain. COMPARISON: Chest Single View dated 12/24/2020; Chest Single View dated 09/06/2020; Chest Single View dated 05/15/2020; Chest Single View dated 05/22/2017 FINDINGS: Portable technique limits examination quality. Bilateral pulmonary opacities with bilateral pleural effusions appears essentially stable since the 1 study. The heart is moderately enlarged in size. No displaced fractures.Aortic atherosclero sis. IMPRESSION: Stable chest since 12/24/2020.
--- NOTE | 2020-12-27 13:58 | P.DS ---
Admission Date: 12/24/20 Discharge Date: 12/27/20 Primary Care Provider: Mainor Barron NP Disposition: [place] HOME/HOME HEALTH CARE Discharge Condition: GOOD Reason for Admission: Acute CHF exacerbation Consultations: Cardiology-Dr. Rios Procedures: COVID: Negative CXR: COMPARISON: Portable September 06 TECHNIQUE: AP portable chest image was obtained 12/24/2020 10:46 am . FINDINGS: Interstitial and patchy alveolar opacities are present. Chest findings are exaggerated by under penetrated technique, body habitus and portable imaging affects. . Cardiomegaly is present. Small to moderate left- sided pleural effusion is present with small right pleural effusion. Trachea is in midline peer no pneumothorax. No acute bony abnormality seen. No acute aortic findings suspected. IMPRESSION: CHF/volume overload pattern is evident with small right-side and small to moderate left-side pleural effusions. Venous doppler: COMPARISON: EXT VENOUS W COMPRESSION EARNEST dated 03/25/2013 TECHNIQUE: Real-time sonographic interrogation of the left and right lower extremity deep venous systems was performed. FINDINGS: Exam was limited by body habitus and clinical condition of the patient. Normal compressibility, flow augmentation, phasic flow and spontaneous flow is identified in the majority of the left and right lower extremity deep venous systems. IMPRESSION: No gross sonographic evidence of left or right lower extremity deep venous thrombosis. Follow up CXR: COMPARISON: Chest Single View dated 12/24/2020; Chest Single View dated 09/06/2020; Chest Single View dated 05/15/2020; Chest Single View dated 05/22/2017 FINDINGS: Portable technique limits examination quality. Bilateral pulmonary opacities with bilateral pleural effusions appears essentially stable since the 12/24/2020 study. The heart is moderately enlarged in size. No displaced fractures.Aortic atherosclerosis. IMPRESSION: Stable chest since 12/24/2020. Medical Problem List: Dyspnea secondary to acute on chronic combined systolic/diastolic CHF Atrial fibrillation on chronic anticoagulation therapy Hypertension Chronic lymphedema with venous stasis dermatitis to the lower extremity Obesity, BMI 37.2 Brief History of Present Illness: 70-year-old male presented with shortness of breath secondary to CHF exacerbation. Chest x-ray revealed pulmonary edema. Pleural effusions also noted. The patient was admitted for diuresis. Hospital Course: Patient presented with dyspnea secondary to acute on chronic combined systolic/diastolic CHF. Patient with history of atrial fibrillation on chronic anticoagulation therapy. Patient received IV diuresis with improvement. His condition improved. At discharge patient without significant shortness of breath. Patient still requires home oxygen at discharge. This will be arranged at discharge. Currently on 2 L per nasal cannula. At discharge she is to monitor his weight daily. Recommend to continue 1500 cc/day fluid restriction and low-salt diet. If his weight increases by more than 5 pounds he is to contact his PCP or cardiology for further recommendation. At discharge the patient will continue with Lasix 40 mg 1 pill twice daily. Recommend to recheck labBMP within 1 week to monitor his progress. Recommend follow-up with cardiology and PCP within 1 week to follow-up his hospitalization. Further adj ustment in his diuretic therapy may be considered. This can be done with the help of his PCP or bank credit card collection clerk. Patient with atrial fibrillation on chronic anticoagulation therapy. This remained stable. She remains in atrial fibrillation but rate controlled. Patient previously on low-dose carvedilol 3.125 mg 1 pill twice daily. This was discontinued due to low heart rate. At discharge patient will continue with Xarelto 20 mg daily for chronic anticoagulation therapy.. Patient with hypertension. Medications have been adjusted. Patient will no longer take carvedilol or lisinopril. Patient now on valsartan with blood pressure control. At discharge patient will continue with valsartan 80 mg daily. Recommend to maintain blood pressure less than 130/80. Further adjustment can be done by his PCP. Patient with chronic lymphedema with venous stasis dermatitis to the lower extremity. This appears stable. This can be further monitored by his PCP. Prior to discharge home health and physical therapy arranged. Fall precautions in place. Patient will continue with home oxygen to maintain sats above 93%. Vital Signs/Physical Exam: Temp Pulse Resp BP Pulse Ox 97.9 F 49 L 20 123/62 97 12/27/20 12:00 12/27/20 12:00 12/27/20 12:00 12/27/20 12:00 12/27/20 12:00 General: Alert, In no apparent distress, Oriented x3, Cooperative HEENT: Atraumatic Neck: Supple Respiratory: Other (Breathing improved. Currently on 2 L per nasal cannula) Cardiovascular: Other (Atrial fibrillation rate controlled) Gastrointestinal: Normal bowel sounds, No ascites Musculoskeletal: No erythema, No tenderness, No warmth Integumentary: No tenderness/swelling, No erythema, No warmth, No cyanosis Neurological: Normal speech, Normal strength at 5/5 x4 extr, Normal tone, Normal affect Laboratory Data at Discharge: WBC 6.00 K/uL (4.3-10.9) D 12/27/20 06:24 Hgb 11.7 g/dL (13.6-17.9) L 12/27/20 06:24 Hct 35.8 % (39.6-49.0) L 12/27/20 06:24 Plt Count 139 K/uL (152-406) L D 12/27/20 06:24 PT 35.9 SECONDS (9.5-12.5) H 12/24/20 10:35 INR 3.09 12/24/20 10:35 Sodium 138 mmol/L (136-145) 12/27/20 06:24 Potassium 3.9 mmol/L (3.5-5.1) 12/27/20 06:24 BUN 24 mg/dL (7-18) H 12/27/20 06:24 Creatinine 1.25 mg/dL (0.55-1.3) 12/27/20 06:24 Glucose 109 mg/dL (74-106) H 12/27/20 06:24 Phosphorus 3.2 mg/dL (2.5-4.9) 12/25/20 04:43 Magnesium 2.3 mg/dL (1.8-2.4) 12/27/20 06:24 Total Bilirubin 1.8 mg/dL (0.2-1.0) H 12/25/20 04:43 AST 20 U/L (15-37) 12/25/20 04:43 ALT 13 U/L (12-78) 12/25/20 04:43 Alkaline Phosphatase 101 U/L (45-117) 12/25/20 04:43 Troponin I 0.02 ng/mL (0.0-0.045) 12/25/20 04:43 Triglycerides 58 mg/dL (<150) 12/25/20 04:43 Cholesterol 102 mg/dL (<200) 12/25/20 04:43 HDL Cholesterol 38 mg/dL (40-60) L 12/25/20 04:43 Cholesterol/HDL Ratio 2.68 12/25/20 04:43 Lipase 154 U/L (73-393) 12/24/20 10:35 Home Medications: Rivaroxaban [Xarelto] 20 mg PO DAILY AT SUPPER 05/16/20 Furosemide [Lasix*] 40 mg PO BIDL #60 tab 12/27/20 Valsartan 80 mg PO DAILY #30 tablet 12/27/20 New Medications: Furosemide [Lasix*] 40 mg PO BIDL #60 tab Valsartan 80 mg PO DAILY #30 tablet Physician Discharge Instructions: Patient presented with dyspnea secondary to acute on chronic combined systolic/d iastolic CHF. Patient with history of atrial fibrillation on chronic anticoagulation therapy. Patient received IV diuresis with improvement. His condition improved. At discharge patient without significant shortness of breath. Patient still requires home oxygen at discharge. This will be arranged at discharge. Currently on 2 L per nasal cannula. At discharge she is to monitor his weight daily. Recommend to continue 1500 cc/day fluid restriction and low-salt diet. If his weight increases by more than 5 pounds he is to contact his PCP or cardiology for further recommendation. At discharge the patient will continue with Lasix 40 mg 1 pill twice daily. Recommend to recheck labBMP within 1 week to monitor his progress. Recommend follow-up with cardiology and PCP within 1 week to follow-up his hospitalization. Further adjustment in his diuretic therapy may be considered. This can be done with the help of his PCP or bank credit card collection clerk. Patient with atrial fibrillation on chronic anticoagulation therapy. This remained stable. She remains in atrial fibrillation but rate controlled. Patient previously on low-dose carvedilol 3.125 mg 1 pill twice daily. This was discontinued due to low heart rate. At discharge patient will continue with Xarelto 20 mg daily for chronic anticoagulation therapy.. Patient with hypertension. Medications have been adjusted. Patient will no lo nger take carvedilol or lisinopril. Patient now on valsartan with blood pressure control. At discharge patient will continue with valsartan 80 mg daily. Recommend to maintain blood pressure less than 130/80. Further adjustment can be done by his PCP. Patient with chronic lymphedema with venous stasis dermatitis to the lower extremity. This appears stable. This can be further monitored by his PCP. Prior to discharge home health and physical therapy arranged. Fall precautions in place. Patient will continue with home oxygen to maintain sats above 93%. Diet: AHA Activity: Fall precautions Time spent managing pt's care (in minutes): 55
[2020-12-27 16:32] VITALS: TEMP 98.5
[2020-12-27 16:57] VITALS: O2SAT 99
[2020-12-27] MEDS: RIVAROXABAN 20 MG TABLET PO SCH (17:50)
[2020-12-27 17:51] VITALS: BP 123/76
--- NOTE | 2020-12-28 08:02 | ECHO ---
HEIGHT: 5 ft 11 in WEIGHT: 267 lb 0 oz DATE OF STUDY: 12/27/[address]: Noemi Mendes MD 2-DIMENSIONAL: YES M.MODE: YES DOPPLER: YES COLOR FLOW: YES TDS: NO PORTABLE: NO DEFINITY: NO BUBBLE STUDY: NO DIAGNOSIS: CONGESTIVE HEART FAILURE CARDIAC HISTORY: CATHERIZATION: SURGERY: PROSTHETIC VALVE: PACEMAKER: MEASUREMENTS (cm) DIASTOLIC (NORMALS) SYSTOLIC (NORMALS) IVSd 1.0 (0.6-1.2) LA Diam 4.8 (1.9-4.0) LVEF 55% LVIDd 6.0 (3.5-5.7) LVIDs 4.2 (2.0-3.5) %FS 29% LVPWd 1.0 (0.6-1.2) Ao Diam 3.4 (2.0-3.7) 2 DIMENSIONAL ASSESSMENT: RIGHT ATRIUM: NORMAL LEFT ATRIUM: ENLARGED RIGHT VENTRICLE: NORMAL LEFT VENTRICLE: NORMAL TRICUSPID VALVE: MILD TRICUSPID REGURGITATION MITRAL VALVE: MILD MITRAL REGURGITATION PULMONIC VALVE: NORMAL AORTIC VALVE: MILD SCLEROSIS PERICARDIAL EFFUSION: NONE AORTIC ROOT: NORMAL LEFT VENTRICULAR WALL MOTION: NORMAL. DOPPLER/COLOR FLOW: SEE BELOW. COMMENTS: NORMAL LEFT VENTRICULAR EJECTION FRACTION 55-60% WITH NORMAL WALL MOTION. DIASTOLIC DYSFUNCTION. PULMONARY HYPERTENSION, RIGHT VENTRICULAR SYSTOLIC PRESSURE 50-55mmHg. MILD MITRAL REGURGITATION, MILD TRICUSPID REGURGITATION. TECHNOLOGIST: MAYTE MONTEJO
--- NOTE | 2021-01-02 08:58 | CON ---
Date of Consultation: 12/27/2020 The patient was admitted to Dr. Sam's service for congestive heart failure on 12/24/2020. I saw t he patient on 12/27/2020. History Of Present Illness: Mr. Linares is a 70-year-old male, who came in complaining of shortness o f breath. Denied any chest pain. Denied any nausea, vomiting, diaphoresis, PND, orthopnea, pedal ed lim[place], palpitation, or syncope. Allergies: NONE. Medications At Home: Include carvedilol, furosemide, lisinopril, and Xarelto. 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 Review of Systems: Negative. Social History: Negative. Family History: Noncontributory. Physical Examination: General: No acute distress. Vital Signs: He weighed 267 pounds. Stable, afebrile. Atrial fibrillation at rate of 50, O2 satura tion was 99% on nasal cannula of 2 L. HEENT: Negative. Neck: Supple. No bruit. Chest: Clear. Cardiac: Revealed atrial fibrillation. Abdomen: Benign. Extremities: Revealed no clubbing, cyanosis, or edema. Diagnostic Data: Chest x-ray showed CHF. BNP was 5779. His EKG showed atrial fibrillation. Echoca rdiogram, which was done on 12/27/2020 showed an ejection fraction of 55%, some diastolic dysfunction , moderate pulmonary hypertension. He had an extremity venous study that showed no DVT. Impression And Plan: 1.Acute on chronic diastolic congestive heart failure. 2.Nzdxmybs-hr-usbveg pulmonary hypertension. 3.Chronic atrial fibrillation. 4.History of coronary artery disease. The patient presently is on valsartan, Xarelto, Lasix, aspirin, and Plavix. I think a low dose beta- milvia may be beneficial for Mr. Linares, who was taking carvedilol at home. I think he is doing wel l and he can be discharged whenever it is okay with admitting physician and [facility]. He will need followups on his coronary artery disease to investigate while he is not on a statin, but I will discuss that further with him as an outpatient. NB/MODL Voice ID: [id number] Report ID: [id number]
== END 2020-12-27 18:20 | disposition home health service (06) | DRG 291 ==
LOC: ER 10:09 → 4TH 15:49
PROVIDERS: ADMIT Hospitalist; ATTEND Hospitalist
PROC: 5A09357 Assistance with Respiratory Ventilation, Less than 24 Consecutive Hours, Continuous Positive Airway Pressure (ICD-10-PCS; principal; 2020-12-24)
DX: I13.0 Hypertensive heart and chronic kidney disease with heart failure and stage 1 through stage 4 chronic kidney disease, or unspecified chronic kidney disease (principal); I50.43 Acute on chronic combined systolic (congestive) and diastolic (congestive) heart failure; E66.9 Obesity, unspecified; Z68.37 Body mass index [BMI] 37.0-37.9, adult; I48.91 Unspecified atrial fibrillation; I89.0 Lymphedema, not elsewhere classified; I87.2 Venous insufficiency (chronic) (peripheral); I27.20 Pulmonary hypertension, unspecified; I25.10 Atherosclerotic heart disease of native coronary artery without angina pectoris; E78.5 Hyperlipidemia, unspecified; E11.22 Type 2 diabetes mellitus with diabetic chronic kidney disease; N18.30 Chronic kidney disease, stage 3 unspecified; Z79.01 Long term (current) use of anticoagulants; Z20.822 Contact with and (suspected) exposure to COVID-19
CPT/HCPCS: 36415; 51702; 71045; 80048; 80053; 80061; 80076; 81003; 82947; 83605; 83690; 83735; 83880; 84100; 84484; 85025; 85379; 85610; 87040; 87804; 93005; 93306; 93970; 94640; 94660; 96365; 96366; 96375; 99285; J1650; J1940; P9047; U0003

== ENCOUNTER 2021-10-01 13:34 | Emergency (ER) | payer OTHER ==
--- NOTE | 2021-10-01 15:25 | RAD REPORT ---
EXAM DESCRIPTION: USExtremity Venous Uni Ltd10/01/2021 3:14 pm CLINICAL HISTORY: left leg swelling. COMPARISON: 2020 FINDINGS: Left common femoral, superficial femoral, popliteal and posterior tibial veins are compre ssible and demonstrate augmentation. Doppler demonstrates good flow. Grayscale, color and spectral analysis performed on all vessels IMPRESSION: No evidence of deep venous thrombosis involving the left lower extremity.
[2021-10-01 15:45] LABS: Absolute Lymphocytes (CBC) 0.9 K/uL (0.7-4.9); Hematocrit 39.1 % (39.6-49.0); Lymphocytes % 16.3 % (15.3-44.8); MCV 85.9 fL (80-100); MPV 7.8 fL (7.6-11.3); RBC Red Blood Cell Count 4.56 M/uL (4.33-5.43)
[2021-10-01 15:57] LABS: Potassium 3.8 mmol/L (3.5-5.1)
--- NOTE | 2021-10-01 16:39 | ER ---
Nurse's Notes [facility] Name: Elijah Linares Age: 71 yrs Sex: Male : 1950 Arrival Date: 10/01/2021 Time: 13:45 Bed 15 Private MD: Diagnosis: Peripheral edema Presentation: 10/01 14:00 Chief complaint: Patient states: L leg weeping fluid for 4 days. No Known fever. ll1 Coronavirus screen: Vaccine status: Patient reports receiving the 2nd dose of the covid vaccine. Client denies travel out of the [place] in the last 14 days. At this time, the client does not indicate any symptoms associated with coronavirus-19. Ebola Screen: Patient denies travel to an Ebola-affected area in the 21 days before illness onset. Initial Sepsis Screen: Does the patient meet any 2 criteria? No. Patient's initial sepsis screen is negative. Does the patient have a suspected source of infection? Yes: Skin breakdown/wound. Risk Assessment: Do you want to hurt yourself or someone else? Patient reports no desire to harm self or others. Onset of symptoms was September 27, 2021. 14:00 Method Of Arrival: EMS ll1 14:00 Acuity: NADIYA 3 ll1 Triage Assessment: 14:01 General: Appears in no apparent distress. Behavior is calm, cooperative, appropriate ll1 for age. Pain: Complains of pain in left leg Pain currently is 5 out of 10 on a pain scale. Quality of pain is described as aching. Derm: Skin is moist, Skin is red, Reports weeping, redness to LLE. Historical: - Allergies: 13:59 No Known Allergies; ll1 - PMHx: 13:59 Atrial fibrillation; blood clot inferior vena cava; Cellulitis; Diabetes - NIDDM; ll1 Diabetic ulcers; Hypertension; Myocardial infarction; - Immunization history:: Client reports receiving the 2nd dose of the Covid vaccine. - Social history:: Smoking status: Patient denies any tobacco usage or history of. Screenin:16 Abuse screen: Denies threats or abuse. Nutritional screening: No deficits noted. ll1 Tuberculosis screening: No symptoms or risk factors identified. Fall Risk Total Penn Fall Scale indicates No Risk (0-24 pts). Assessment: 15:00 Reassessment: No changes from previously documented assessment. Patient and/or family ll1 updated on plan of care and expected duration. Pain level reassessed. Patient is alert, oriented x 3, equal unlabored respirations, skin warm/dry/pink. 16:00 Reassessment: No changes from previously documented assessment. Patient and/or family ll1 updated on plan of care and expected duration. Pain level reassessed. Patient is alert, oriented x 3, equal unlabored respirations, skin warm/dry/pink. 17:00 Reassessment: No changes from previously documented assessment. Patient and/or family ll1 updated on plan of care and expected duration. Pain level reassessed. Patient is alert, oriented x 3, equal unlabored respirations, skin warm/dry/pink. Vital Signs: 14:00 BP 151 / 94; Pulse 64; Resp 17; Temp 98.1; Pulse Ox 100% on 2 lpm NC; Weight 109.77 kg; ll1 Height 4 ft. 11 in. (149.86 cm); Pain 0/10; 16:16 BP 150 / 94; Pulse 68; Resp 17; ll1 17:30 BP 151 / 91; Pulse 66; Resp 17; Pulse Ox 100% ; ll1 14:00 Body Mass Index 48.88 (109.77 kg, 149.86 cm) ll1 ED Course: 05:40 Inserted saline lock: 22 gauge in right antecubital area, using aseptic technique. ll1 Blood collected. 13:45 Patient arrived in ED. eb 13:45 Renard Farias PA is PHCP. [facility] 13:45 Silvana Cobb MD is Attending Physician. [facility] 13:59 Jennifer Clemente, JAMARCUS is Primary Nurse. ll1 13:59 Arm band placed on Patient placed in an exam room, on a stretcher. ll1 14:01 Triage completed. ll1 15:15 US Extremity Venous Unilateral Ltd In Process Unspecified. EDMS 16:17 Patient has correct armband on for positive identification. Placed in gown. Bed in low ll1 position. Call light in reach. Side rails up X 1. Cardiac monitoring not applicable on this patient. 17:15 Wound care: to cellulitis located on left leg was dressed with Kerlix, non adherent ll1 dressing, secured with arcadio wrap. 17:27 IV discontinued, intact, bleeding controlled, No redness/swelling at site. Pressure ll1 dressing applied. 17:29 No provider procedures requiring assistance completed. ll1 Administered Medications: No medications were administered Medication: 16:16 VIS not applicable for this client. ll1 Outcome: 16:38 Discharge ordered by MD. arthur 17:29 Discharged to home via wheelchair. ll1 17:29 Condition: stable 17:29 Discharge instructions given to patient, Instructed on discharge instructions, follow up and referral plans. Demonstrated understanding of instructions, follow-up care. 17:30 Patient left the ED. ll1 Signatures: Dispatcher [employer] EDRenard Layne PA PA jmm Botello, Elizabeth eb Lewis, Lynsay, RN RN ll1
--- NOTE | 2021-10-01 16:39 | EDPHYS ---
Physician Documentation [facility] Name: Elijah Linares Age: 71 yrs Sex: Male : 1950 Arrival Date: 10/01/2021 Time: 13:45 Bed 15 Private MD: ED Physician Silvana Cobb HPI: 10/01 16:21 This 71 yrs old Male presents to ER via EMS with complaints of Left leg weeping. jmm 16:21 The patient presents with swelling. Onset: The symptoms/episode began/occurred jmm gradually, 4 day(s) ago. Modifying factors: The symptoms are alleviated by nothing. the symptoms are aggravated by nothing. This is a 71-year-old male with a history of atrial fibrillation the presents emerged department with complaints of weeping to his left lower leg. Patient states he receives wound care 3 times a week. Denies shortness of breath, fever, pain.. Historical: - Allergies: 13:59 No Known Allergies; ll1 - PMHx: 13:59 Atrial fibrillation; blood clot inferior vena cava; Cellulitis; Diabetes - NIDDM; ll1 Diabetic ulcers; Hypertension; Myocardial infarction; - Immunization history:: Client reports receiving the 2nd dose of the Covid vaccine. - Social history:: Smoking status: Patient denies any tobacco usage or history of. ROS: 16:21 Constitutional: Negative for fever, chills, and weight loss, Cardiovascular: Negative jmm for chest pain, palpitations, and edema, Respiratory: Negative for shortness of breath, cough, wheezing, and pleuritic chest pain. 16:21 MS/extremity: Positive for swelling. 16:21 All other systems are negative. Exam: 16:21 Constitutional: This is a well developed, well nourished patient who is awake, alert, jmm and in no acute distress. Head/Face: atraumatic. Eyes: EOMI, no conjunctival erythema appreciated ENT: Moist Mucus Membranes Neck: Trachea midline, Supple Chest/axilla: Normal chest wall appearance and motion. Cardiovascular: Regular rate and rhythm. No edema appreciated Respiratory: Normal respirations, no respiratory distress appreciated Abdomen/GI: Non distended Back: Normal ROM Skin: General appearance color normal Neuro: Awake and alert 16:21 Musculoskeletal/extremity: Compartments are soft, full dorsalis pedis pulse, mild edema. NVI. 16:21 Skin: Appearance: Color: normal in color. 16:21 Neuro: Orientation: is normal, Mentation: is normal, Memory: is normal. 16:21 Psych: Behavior/mood is pleasant, cooperative. Vital Signs: 14:00 BP 151 / 94; Pulse 64; Resp 17; Temp 98.1; Pulse Ox 100% on 2 lpm NC; Weight 109.77 kg; ll1 Height 4 ft. 11 in. (149.86 cm); Pain 0/10; 16:16 BP 150 / 94; Pulse 68; Resp 17; ll1 17:30 BP 151 / 91; Pulse 66; Resp 17; Pulse Ox 100% ; ll1 14:00 Body Mass Index 48.88 (109.77 kg, 149.86 cm) ll1 MDM: 13:48 Patient medically screened. [facility] 16:37 Data reviewed: vital signs, nurses notes. Counseling: I had a detailed discussion with jerson the patient and/or guardian regarding: the historical points, exam findings, and any diagnostic results supporting the discharge/admit diagnosis, the need for outpatient follow up, to return to the emergency department if symptoms worsen or persist or if there are any questions or concerns that arise at home. ED course: Patient is alert and non toxic in appearance in the ED. I do not currently suspect cellulitis. Patient advised to follow up with pcp and otherwise given strict return precautions. Patient understood and agrees with the plan of care. . 10/01 14:32 Order name: CBC with Diff; Complete Time: 16:08 [facility] 10/01 14:32 Order name: BMP; Complete Time: 16:08 [facility] 10/01 13:49 Order name: Gown patient; Complete Time: 14:08 [facility] 10/01 14:18 Order name: US Extremity Venous Unilateral Ltd; Complete Time: 15:29 [facility] 10/01 14:32 Order name: Saline Lock; Complete Time: 14:49 [facility] 10/01 14:32 Order name: Lactate; Complete Time: 16:08 [facility] Administered Medications: No medications were administered Disposition: 18:48 Co-signature as Attending Physician, Silvana Cobb MD STAFF ATTESTATION STATEMENT I sd2 was immediately available on-site in the Emergency Department for consultation in the care of the patient. Silvana Cobb MD. Disposition Summary: 10/01/21 16:38 Discharge Ordered Location: Home jmm Condition: Stable jmm Diagnosis - Peripheral edema jmm Followup: jmm - With: Private Physician - When: 2 - 3 days - Reason: Recheck today's complaints, Continuance of care, Re-evaluation by your physician Discharge Instructions: - Discharge Summary Sheet jmm - Peripheral Edema jmm Forms: - Medication Reconciliation Form jmm - Thank You Letter jmm - Antibiotic Education jmm - Prescription Opioid Use jmm Signatures: Dispatcher [employer] EDRenard Layne PA PA jmm Lewis, Lynsay, RN RN ll1 Silvana Cobb MD MD sd2
[2021-10-01 18:22] VITALS: TEMP 98.1; O2SAT 100
[2021-10-01 18:26] VITALS: BP 151/91
== END 2021-10-01 17:30 | disposition home or self-care (01) ==
LOC: ER 13:34
DX: R60.9 Edema, unspecified (principal); E11.9 Type 2 diabetes mellitus without complications; I10 Essential (primary) hypertension; I48.91 Unspecified atrial fibrillation
CPT/HCPCS: 36415; 80048; 83605; 85025; 93971; 99284